=== PATIENT | female | born 1970 | race Caucasian/White ===

== ENCOUNTER → 2017-10-03 | Outpatient (CLI) | payer OTHER | END | disposition home or self-care (01) | LOC: RAD 11:51 | DX: M17.0 Bilateral primary osteoarthritis of knee (principal) | CPT/HCPCS: 73565 ==

== ENCOUNTER 2017-11-14 10:39 | Emergency (ER) | payer OTHER ==
[2017-11-14 12:00] LABS: ADD MAN DIFF? NO
[2017-11-14 12:10] LABS: BASO % 1 % (0-3); EOS # 0.1 x10^3/uL (0.0-0.7); EOS % 3 % (0-3); HEMOGLOBIN 13.7 g/dL (12.0-15.5); LYMPH # 1.5 x10^3/uL (1.0-4.8); LYMPH % 27 % (24-48); MEAN CORPUSCULAR HEMOGLOBIN 32 pg (25-35); MEAN CORPUSCULAR HGB CONC 34 g/dL (31-37); MEAN CORPUSCULAR VOLUME 93 fL (79-100); MONO # 0.6 x10^3/uL (0.0-1.1); MONO % 11 % (0-9); NEUT # 3.3 x10^3uL (1.8-7.7); NEUT % 59 % (31-73); PLATELET COUNT 300 x10^3/uL (140-400); RED BLOOD COUNT 4.31 x10^6/uL (3.50-5.40); RED CELL DISTRIBUTION WIDTH 13.1 % (11.5-14.5); WHITE BLOOD COUNT 5.7 x10^3/uL (4.0-11.0)
[2017-11-14] MEDS: IV NORMAL SALINE 1000ML BAG 1,000 ML IV (12:10)
[2017-11-14] MEDS: MORPHINE SULFATE 4 MG/ML DISP.SYRIN. IV (12:11)
[2017-11-14] MEDS: methylPREDNISolone SOD SUCC PF 125 MG/2 ML VIAL. IV (12:11)
[2017-11-14] MEDS: ACETAMINOPHEN 500 MG TABLET PO (12:11)
[2017-11-14] MEDS: LABETALOL 20 MG/4 ML DISP.SYRIN. IVP (12:12)
[2017-11-14 12:14] LABS: ANION GAP 9 (6-14); BLOOD UREA NITROGEN 7 mg/dL (7-20); BUN/CREATININE RATIO 9 (6-20); CARBON DIOXIDE 28 mmol/L (21-32); CHLORIDE 104 mmol/L (98-107); CREATININE 0.8 mg/dL (0.6-1.0); GFR 77.2; GLUCOSE 95 mg/dL (70-99); POTASSIUM 3.3 mmol/L (3.5-5.1); SODIUM 141 mmol/L (136-145)
[2017-11-14 12:19] LABS: ALBUMIN 3.6 g/dL (3.4-5.0); ALK PHOS 97 U/L (46-116); ALT (SGPT) 21 U/L (14-59); AST (SGOT) 20 U/L (15-37); TOTAL BILIRUBIN 0.4 mg/dL (0.2-1.0); TOTAL PROTEIN 7.3 g/dL (6.4-8.2)
== END 2017-11-14 14:15 | disposition home or self-care (01) ==
LOC: ER 10:39
DX: I13.0 Hypertensive heart and chronic kidney disease with heart failure and stage 1 through stage 4 chronic kidney disease, or unspecified chronic kidney disease (principal); N18.9 Chronic kidney disease, unspecified; I50.9 Heart failure, unspecified; R51 Headache; M32.9 Systemic lupus erythematosus, unspecified; Z90.49 Acquired absence of other specified parts of digestive tract; Z90.710 Acquired absence of both cervix and uterus; Z88.2 Allergy status to sulfonamides; Z88.1 Allergy status to other antibiotic agents
CPT/HCPCS: 36415; 80053; 85025; 96361; 96374; 96375; 99284-25; J2270; J2930; J3490; J7030

== ENCOUNTER → 2017-12-05 | Outpatient (CLI) | payer OTHER ==
[2017-12-05 12:32] LABS: HEMATOCRIT 41.5 % (36.0-47.0); HEMOGLOBIN 14.5 g/dL (12.0-15.5); MEAN CORPUSCULAR HEMOGLOBIN 33 pg (25-35); MEAN CORPUSCULAR HGB CONC 35 g/dL (31-37); MEAN CORPUSCULAR VOLUME 93 fL (79-100); PLATELET COUNT 357 x10^3/uL (140-400); RED BLOOD COUNT 4.45 x10^6/uL (3.50-5.40); WHITE BLOOD COUNT 6.5 x10^3/uL (4.0-11.0)
[2017-12-05 12:58] LABS: ALK PHOS 98 U/L (46-116); ALT (SGPT) 32 U/L (14-59); ANION GAP 11 (6-14); AST (SGOT) 21 U/L (15-37); BLOOD UREA NITROGEN 8 mg/dL (7-20); BUN/CREATININE RATIO 8 (6-20); CALCIUM 9.2 mg/dL (8.5-10.1); CARBON DIOXIDE 26 mmol/L (21-32); CHLORIDE 102 mmol/L (98-107); CHOLESTEROL 261 mg/dL (0-200); GFR 59.4; GLUCOSE 105 mg/dL (70-99); HDLC 60 mg/dL (40-60); LDLC 174 mg/dL (0-100); NON-HDL CHOLESTEROL 201 mg/dL (0-129); POTASSIUM 3.4 mmol/L (3.5-5.1); SODIUM 139 mmol/L (136-145); TOTAL BILIRUBIN 0.7 mg/dL (0.2-1.0); TOTAL PROTEIN 7.9 g/dL (6.4-8.2); TRIGLYCERIDES 137 mg/dL (0-150); VLDLC 27 mg/dL (0-40)
[2017-12-05 13:03] LABS: CHOLESTEROL/HDL RATIO 4.4
== END | disposition home or self-care (01) ==
LOC: LAB 12:13
DX: Z13.220 Encounter for screening for lipoid disorders (principal); I16.9 Hypertensive crisis, unspecified
CPT/HCPCS: 36415; 80053; 80061; 85027

== ENCOUNTER → 2017-12-05 | Outpatient (CLI) | payer OTHER ==
[2017-12-05 12:56] LABS: CALCIUM 9.6 mg/dL (8.5-10.1)
[2017-12-05 12:56] LABS: GFR 59.4
[2017-12-05 13:36] LABS: SEDIMENTATION RATE 15 (0-25)
[2017-12-05 19:14] LABS: C3 COMPLEMENT 150 mg/dL (82-167)
[2017-12-05 19:14] LABS: C4 COMPLEMENT 25 mg/dL (14-44)
[2017-12-06 21:11] LABS: CYCLIC CITRULLIN PEP AB 9 units (0-19)
[2017-12-07 09:24] LABS: ANTI-DS DNA 3 IU/mL (0-9); RNP ANTIBODY 1.3 AI (0.0-0.9); SMITH AB <0.2 AI (0.0-0.9); SSA ANTIBODY <0.2 AI (0.0-0.9); SSB ANTIBODY <0.2 AI (0.0-0.9)
== END | disposition home or self-care (01) ==
LOC: LAB 12:06
DX: M32.9 Systemic lupus erythematosus, unspecified (principal); E55.9 Vitamin D deficiency, unspecified
CPT/HCPCS: 36415; 82306; 82310; 82565; 85651; 86140; 86160; 86200; 86235; 87801

== ENCOUNTER → 2017-12-06 | Outpatient (CLI) | payer OTHER | END | disposition home or self-care (01) | LOC: KCIC DEXA 09:43 | DX: Z51.81 Encounter for therapeutic drug level monitoring (principal); Z79.52 Long term (current) use of systemic steroids | CPT/HCPCS: 77080 ==

== ENCOUNTER → 2017-12-12 | Outpatient (CLI) | payer OTHER | END | disposition home or self-care (01) | LOC: US 15:56 | DX: M79.89 Other specified soft tissue disorders (principal) | CPT/HCPCS: 93971 ==

== ENCOUNTER → 2017-12-13 | Outpatient (CLI) | payer OTHER | END | disposition home or self-care (01) | LOC: RAD 14:12 | DX: M43.16 Spondylolisthesis, lumbar region (principal); M12.88 Other specific arthropathies, not elsewhere classified, other specified site | CPT/HCPCS: 72100 ==

== ENCOUNTER → 2017-12-28 | Outpatient (CLI) | payer OTHER | END | disposition home or self-care (01) | LOC: KCIC MRI 08:26 | DX: M51.26 Other intervertebral disc displacement, lumbar region (principal); M48.061 Spinal stenosis, lumbar region without neurogenic claudication; M12.88 Other specific arthropathies, not elsewhere classified, other specified site; I13.0 Hypertensive heart and chronic kidney disease with heart failure and stage 1 through stage 4 chronic kidney disease, or unspecified chronic kidney disease; I50.9 Heart failure, unspecified; N18.9 Chronic kidney disease, unspecified | CPT/HCPCS: 72148 ==

== ENCOUNTER 2018-01-12 18:25 | Emergency (ER) | payer OTHER ==
[2018-01-12] MEDS: LIDOCAINE 1% PF 2 ML VIAL. INJ (19:25)
== END 2018-01-12 19:53 | disposition home or self-care (01) ==
LOC: ER 18:25
DX: H65.92 Unspecified nonsuppurative otitis media, left ear (principal); I11.0 Hypertensive heart disease with heart failure; I50.9 Heart failure, unspecified; Z88.2 Allergy status to sulfonamides; Z88.8 Allergy status to other drugs, medicaments and biological substances
CPT/HCPCS: 96372; 99283-25

== ENCOUNTER 2018-01-18 20:18 | Emergency (ER) | payer OTHER ==
[2018-01-18] MEDS: HYDROcodone/APAP 5/325MG 1 TAB TABLET PO (21:04)
[2018-01-18] MEDS: LIDOCAINE 1% PF 2 ML VIAL. INJ (21:16)
== END 2018-01-18 21:16 | disposition home or self-care (01) ==
LOC: ER 20:18
DX: H66.92 Otitis media, unspecified, left ear (principal); F41.9 Anxiety disorder, unspecified; M19.90 Unspecified osteoarthritis, unspecified site; I11.0 Hypertensive heart disease with heart failure; I50.9 Heart failure, unspecified; F32.9 Major depressive disorder, single episode, unspecified; Z88.2 Allergy status to sulfonamides; Z88.1 Allergy status to other antibiotic agents
CPT/HCPCS: 96372; 99283

== ENCOUNTER → 2018-10-09 | Outpatient (CLI) | payer OTHER ==
[2018-06-15 09:02] VITALS: BP 128/90
[~2018-10-09] MED LIST: ACET325T9 PO; AZAT50TA20 PO; CEFP200T PO; CYCL10TA2 PO; DICL75TA PO; GABA300C18 PO; HYDR-2678 PO; HYDR-3164 PO; HYDR200T71 PO; LISI10TA2 PO; MAGN400T3 PO; METO50TA6 PO; METO5TAB4 PO; NAPH1POW2 PO; NAPR-514 PO; NIFE60TA PO; POTA20TA82 PO; TRAM50TA PO
[2018-10-09 11:50] LABS: BASO # 0.1 x10^3/uL (0.0-0.2); BASO % 1 % (0-3); EOS # 0.2 x10^3/uL (0.0-0.7); EOS % 3 % (0-3); HEMATOCRIT 40.4 % (36.0-47.0); HEMOGLOBIN 13.6 g/dL (12.0-15.5); LYMPH # 2.2 x10^3/uL (1.0-4.8); LYMPH % 34 % (24-48); MEAN CORPUSCULAR HEMOGLOBIN 31 pg (25-35); MEAN CORPUSCULAR HGB CONC 34 g/dL (31-37); MEAN CORPUSCULAR VOLUME 92 fL (79-100); MONO # 0.5 x10^3/uL (0.0-1.1); MONO % 7 % (0-9); NEUT # 3.5 x10^3uL (1.8-7.7); NEUT % 55 % (31-73); PLATELET COUNT 346 x10^3/uL (140-400); RED CELL DISTRIBUTION WIDTH 13.6 % (11.5-14.5); WHITE BLOOD COUNT 6.4 x10^3/uL (4.0-11.0)
[2018-10-09 12:15] LABS: ALBUMIN/GLOBULIN RATIO 1.1 (1.0-1.7); C-REACTIVE PROTEIN 0.9 mg/L (0-3.3); CALCIUM 8.9 mg/dL (8.5-10.1); CREATININE 0.9 mg/dL (0.6-1.0); GFR 67.1; POTASSIUM 3.8 mmol/L (3.5-5.1); TOTAL BILIRUBIN 0.4 mg/dL (0.2-1.0); TOTAL PROTEIN 7.8 g/dL (6.4-8.2)
[2018-10-10 10:23] LABS: C3 COMPLEMENT 145 mg/dL (82-167); C4 COMPLEMENT 20 mg/dL (14-44)
== END | disposition home or self-care (01) ==
LOC: LAB 11:26
PROVIDERS: ATTEND Internal Medicine Rheumatology
DX: M25.50 Pain in unspecified joint (principal)
CPT/HCPCS: 36415; 80053; 85025; 85651; 86140; 86160; 87801

== ENCOUNTER → 2019-02-28 | Outpatient (CLI) | payer OTHER ==
[2018-06-15 09:02] VITALS: BP 128/90
--- NOTE | 2019-02-28 16:18 | KCIC ---
CHEST PA LATERAL History: Cough and bronchitis Comparison: 06/14/2018 CTA of the chest, 06/13/2018 portable chest x-ray exam. Findings: The cardiomediastinal silhouette is normal. Pulmonary vasculature is normal. The lungs are clear. No pleural effusion or pneumothorax is seen. There is no acute bone abnormality. Right upper quadrant surgical clips are present. IMPRESSION: No acute cardiopulmonary process. Electronically signed by: Isaac France MD (02/28/2019 4:15 PM) [facility]
== END | disposition home or self-care (01) ==
LOC: KCIC 15:52
PROVIDERS: ATTEND Internal Medicine
DX: J40 Bronchitis, not specified as acute or chronic (principal); R05 Cough; R07.9 Chest pain, unspecified
CPT/HCPCS: 71046

== ENCOUNTER 2019-05-09 07:06 | Observation (INO) | payer OTHER ==
--- NOTE | 2019-05-08 15:15 | HP ---
ADMIT DATE: CHIEF COMPLAINT AND HISTORY OF PRESENT ILLNESS: This patient is a 48-year-old white female who is a 2, para 2 and has had both vaginal deliveries, which is normal and she has had a hysterectomy in the year 2009 for mainly vaginal bleeding and at the present time, she is complaining of bulge in the vaginal area for a year, which has gotten worse and she is a patient of Dr. Oswald and was referred because of a bulge in the vaginal area. She is not diabetic. She does have high blood pressure and she is on medication for the blood pressure problem. PAST MEDICAL HISTORY: Reveals that she has had a hysterectomy, adenoidectomy, also a kidney stone removed. ALLERGIES: She is allergic to SULFA. PERSONAL HISTORY: No smoking. Not alcoholic. REVIEW OF SYSTEMS: Essentially negative. PHYSICAL EXAMINATION: VITAL SIGNS: Stable. She is slightly obese. HEAD, EYES, NOSE, THROAT: Within normal limits. LUNGS: Clear. HEART: Sounds regular sinus rhythm. ABDOMEN: Soft. PELVIC: Shows external genitalia being normal and she does have a cystocele and rectocele. On bimanual exam, no adnexal masses are palpable. No vaginal bleeding noted at the time of the examination. A Pap smear done in the office has remained normal. EXTREMITIES: No edema of feet. IMPRESSION: Cystocele and rectocele. PLAN: Cystocele and rectocele repair, which is the anterior and posterior colpoperineorrhaphy. This has been explained to the patient. Also, the complications of surgery like hemorrhage, risk of infection, injury to the bladder and bowel has been explained to her. The patient is willing for the operation at the present time. ABIMAEL ALLAN MD DR: FERN/rosales JOB#: [id number] / [id number]
[2019-05-09] VITALS (10 sets, daily range): BP systolic 100–120; BP diastolic 62–88
[~2019-05-09] VITALS: Ht 157.5 cm; Wt 98.4 kg
[~2019-05-09 07:06] MED LIST changes: +IV RINGERS,LACTATED 1000ML 1,000 ML IV SCH; -MAGN400T3 PO; +MAGN400T5 PO; +ONDANSETRON PF 4 MG/2 ML VIAL. IV PRN; +fentaNYL PF VIAL 100 MCG/2 ML VIAL IV PRN
[2019-05-09] MEDS ORDERED: BUPIVACAINE-EPI 0.25%-1:200000 MPF 30 ML VIAL. INJ ONE (08:00)
[2019-05-09] MEDS ORDERED: fentaNYL PF VIAL 100 MCG/2 ML VIAL ONE ×2 (08:00→10:17)
[2019-05-09] MEDS ORDERED: ONDANSETRON PF 4 MG/2 ML VIAL. ONE (08:00)
[2019-05-09] MEDS ORDERED: DEXAMETHASONE SOD PHOS 4 MG/ML VIAL ONE (08:00)
[2019-05-09] MEDS ORDERED: PROPOFOL 20 ML IV ONE (08:00)
[2019-05-09] MEDS ORDERED: LIDOCAINE 2% PF 5 ML VIAL. ONE (08:00)
[2019-05-09] MEDS ORDERED: MIDAZOLAM HCL/PF 2 MG/2 ML VIAL. ONE (08:01)
[2019-05-09 09:01] LABS: BASO # 0.1 x10^3/uL (0.0-0.2); BASO % 1 % (0-3); EOS # 0.2 x10^3/uL (0.0-0.7); EOS % 4 % (0-3); HEMATOCRIT 39.5 % (36.0-47.0); HEMOGLOBIN 13.4 g/dL (12.0-15.5); LYMPH # 1.5 x10^3/uL (1.0-4.8); LYMPH % 25 % (24-48); MEAN CORPUSCULAR HEMOGLOBIN 31 pg (25-35); MEAN CORPUSCULAR HGB CONC 34 g/dL (31-37); MEAN CORPUSCULAR VOLUME 91 fL (79-100); MONO # 0.4 x10^3/uL (0.0-1.1); MONO % 7 % (0-9); NEUT # 3.9 x10^3/uL (1.8-7.7); NEUT % 64 % (31-73); PLATELET COUNT 343 x10^3/uL (140-400); RED BLOOD COUNT 4.33 x10^6/uL (3.50-5.40); RED CELL DISTRIBUTION WIDTH 13.6 % (11.5-14.5); WHITE BLOOD COUNT 6.1 x10^3/uL (4.0-11.0)
[2019-05-09 09:11] LABS: PROTHROMBIN TIME PATIENT 13.9 SEC (11.7-14.0)
[2019-05-09] MEDS ORDERED: KETOROLAC 30 MG/ML VIAL. ONE (09:28)
[2019-05-09] MEDS ORDERED: SEVOFLURANE 61 TO 120 MINUTES. IH ONE (09:29)
--- NOTE | 2019-05-09 10:09 | PDOC ---
GENERAL General: 48 yrs old lady has Cystocoel and Rectocoel Scheduled for Anterior and Posterior Colpo perineorrhaphy. VITAL SIGNS Vital Signs/I&O: Vital Signs Date Time Temp Pulse Resp B/P (MAP) Pulse Ox O2 Delivery O2 Flow Rate FiO2 05/09/19 07:47 97.5 61 16 137/91 97 Room Air 97.5 ALLERGIES Allergies: Allergies Coded Allergies Type Severity Reaction Last Updated Verified Sulfa (Sulfonamide Antibiotics) Allergy Intermediate 06/13/18 Yes sulfamethoxazole Allergy Intermediate 06/13/18 Yes trimethoprim Allergy Intermediate 06/13/18 Yes MEDS Medications: Current Medications Medications (Trade) Dose Ordered Sig/Belkis Route PRN Reason Start Time Stop Time Status Last Admin Dose Admin Ringer's Solution 1,000 ml @ 30 mls/hr Q24H IV 05/09/19 07:00 05/09/19 18:59 05/09/19 07:57 Cefazolin Sodium/ Dextrose 50 ml @ 100 mls/hr 1X PREOP PRN IV PRIOR TO PROCEDURE 05/10/19 06:00 05/10/19 18:00 05/09/19 09:01 LAB Lab: Laboratory Tests Test 05/09/19 07:50 White Blood Count 6.1 x10^3/uL (4.0-11.0) Red Blood Count 4.33 x10^6/uL (3.50-5.40) Hemoglobin 13.4 g/dL (12.0-15.5) Hematocrit 39.5 % (36.0-47.0) Mean Corpuscular Volume 91 fL (79-100) Mean Corpuscular Hemoglobin 31 pg (25-35) Mean Corpuscular Hemoglobin Concent 34 g/dL (31-37) Red Cell Distribution Width 13.6 % (11.5-14.5) Platelet Count 343 x10^3/uL (140-400) Neutrophils (%) (Auto) 64 % (31-73) Lymphocytes (%) (Auto) 25 % (24-48) Monocytes (%) (Auto) 7 % (0-9) Eosinophils (%) (Auto) 4 % (0-3) H Basophils (%) (Auto) 1 % (0-3) Neutrophils # (Auto) 3.9 x10^3/uL (1.8-7.7) Lymphocytes # (Auto) 1.5 x10^3/uL (1.0-4.8) Monocytes # (Auto) 0.4 x10^3/uL (0.0-1.1) Eosinophils # (Auto) 0.2 x10^3/uL (0.0-0.7) Basophils # (Auto) 0.1 x10^3/uL (0.0-0.2) Prothrombin Time 13.9 SEC (11.7-14.0) Prothrombin Time INR 1.1 (0.8-1.1) Activated Partial Thromboplast Time 29 SEC (24-38) Laboratory Tests 05/09/19 07:50 ASSESSMENT & PLAN A&P Under GA Anterior and Posterior Colpoperineorhaphy done. EBL 20cc. ABIMAEL ALLAN MD May 09, 2019 10:09
[2019-05-09] MEDS: fentaNYL PF VIAL 100 MCG/2 ML VIAL IV PRN ×2 (10:19→10:28)
[2019-05-09] MEDS ORDERED: MORPHINE SULFATE 2 MG/ML VIAL. ONE (10:21)
[2019-05-09] MEDS: MORPHINE SULFATE 2 MG/ML VIAL. IV PRN ×2 (10:23→10:33)
[2019-05-09] MEDS ORDERED: PROCHLORPERAZINE 10 MG/2 ML VIAL. ONE (10:27)
[2019-05-09] MEDS: PROCHLORPERAZINE 10 MG/2 ML VIAL. IV PRN ×2 (10:30→12:20)
[2019-05-09] MEDS ORDERED: traMADol 50 MG TABLET PO ONE (10:30)
--- NOTE | 2019-05-09 10:33 | OP ---
DATE OF SURGERY: 05/09/2019 PREOPERATIVE DIAGNOSES: Cystocele and rectocele. POSTOPERATIVE DIAGNOSES: Cystocele and rectocele. OPERATION PERFORMED: Anterior and posterior colpoperineorrhaphy. OPERATIVE PROCEDURE: The patient was taken to the operating room under general anesthesia. She was placed in the dorsal lithotomy position. Perineum was prepped and draped in the usual manner. Weighted speculum inserted in the posterior vaginal wall and Gooden catheter introduced into bladder for continuous bladder drainage and midline vertical incision was made on the anterior vaginal wall over the area of the cystocele and the vesicovaginal fascia was dissected, and obliteration of the cystocele was done using Goldie stitches using 2-0 chromic catgut sutures and excessive vaginal mucous membrane on either side was excised and was brought together in midline, sutured together using continuous 0 chromic catgut sutures without any problem. Then, the posterior perineorrhaphy was proceeded by making an incision at the mucocutaneous junction on the posterior vaginal wall and also a midline vertical incision was made on the posterior vaginal wall. Thus, the rectovaginal fascia was dissected, obliteration of the rectocele was done and a pursestring suture using 0 chromic catgut sutures were used to obliterate the rectocele and the excessive vaginal mucous membrane on either side was excised and subjected for pathological examination. The cut edges of vaginal mucous membrane was brought together at midline and sutured together using continuous 0 chromic catgut sutures and the levator ani muscles were brought together midline using [id number] 0 chromic catgut sutures. After this, 2-0 chromic catgut sutures were used to close the posterior vaginal wall without any problem and the vagina was packed with iodoform gauze and the patient was sent to the recovery room in good condition. No complications encountered at time of the procedure. Estimated blood loss about 20 mL. Postoperative condition is stable. ABIMAEL ALLAN MD DR: FERN/rosales JOB#: [id number] / [id number]
[2019-05-09] MEDS ORDERED: HYDROmorphone 2 MG/ML VIAL ONE (10:53)
[2019-05-09] MEDS: HYDROmorphone 2 MG/ML VIAL IV PRN ×4 (11:00→12:25)
[2019-05-09] MEDS ORDERED: IV DEXTROSE 5%-LACT RINGERS 1,000 ML IV SCH (11:45)
--- NOTE | 2019-05-09 13:15 | NUR ---
Pt arrived to bed 333. Pt walked to bed with stand by assistance. Pt has zavala catheter in place with clear, yellow urine. Pt has complaint of pain 3/10 in abdomen. pt has small amount of bloody vaginal discharge with vaginal packing intact. Pt given water at this time. Call light within reach. Will continue to monitor.
[2019-05-09] MEDS: oxyCODONE/APAP 5/325 1 TAB TABLET PO PRN ×3 (15:28→23:52)
[2019-05-10] MEDS: MORPHINE SULFATE 2 MG/ML VIAL. IV PRN ×2 (01:19→05:52)
[2019-05-10 01:25] VITALS: BP 116/66
[2019-05-10] MEDS: oxyCODONE/APAP 5/325 1 TAB TABLET PO PRN ×2 (05:46→10:33)
[2019-05-10 06:00] VITALS: BP 125/81
[2019-05-10] MEDS ORDERED: ceFAZolin 2GM PREMIX 2 GM/50 ML BAG IV ONE (08:00)
--- NOTE | 2019-05-10 08:26 | PDOC ---
GENERAL General: Vital signs stable Vaginal packing removed. VITAL SIGNS Vital Signs/I&O: Vital Signs Date Time Temp Pulse Resp B/P (MAP) Pulse Ox O2 Delivery O2 Flow Rate FiO2 05/10/19 06:00 98.0 71 20 125/81 (96) 95 Room Air 98.0 05/09/19 13:30 2.0 I & O 05/09/19 05/09/19 05/10/19 15:00 23:00 07:00 Intake Total 900 ml 580 ml Output Total 220 ml 650 ml Balance 680 ml -70 ml ALLERGIES Allergies: Allergies Coded Allergies Type Severity Reaction Last Updated Verified Sulfa (Sulfonamide Antibiotics) Allergy Intermediate 05/09/19 Yes sulfamethoxazole Allergy Intermediate 05/09/19 Yes trimethoprim Allergy Intermediate 05/09/19 Yes MEDS Medications: Current Medications Medications (Trade) Dose Ordered Sig/Belkis Route PRN Reason Start Time Stop Time Status Last Admin Dose Admin Cefazolin Sodium/ Dextrose 50 ml @ 100 mls/hr 1X PREOP PRN IV PRIOR TO PROCEDURE 05/10/19 06:00 05/10/19 01:41 DC 05/09/19 09:01 Dextrose/Lactated Ringer's 1,000 ml @ 125 mls/hr Q8H IV 05/09/19 11:45 05/10/19 01:41 DC 05/09/19 13:55 Morphine Sulfate (Morphine Sulfate) 2 mg PRN Q2HR PRN IV PAIN 05/09/19 12:15 05/10/19 05:52 Oxycodone/ Acetaminophen (Percocet 5/325) 1 tab PRN Q4HRS PRN PO PAIN 05/09/19 12:15 05/10/19 05:46 ASSESSMENT & PLAN A&P Patient doing well. She can go home today. Will see her in office in 2 weeks. ABIMAEL ALLAN MD May 10, 2019 08:26
--- NOTE | 2019-05-11 00:06 | PATHOLOGY ---
[facility] Accession Number: [id number] . 01 Material submitted: . vagina - ANTERIOR AND POSTERIOR VAGINAL WALL. Modifiers: anterior, posterior, wall . 01 Clinical history: . Cystocele, rectocele . 02 Diagnosis: "Anterior and posterior vaginal wall", excision: - Benign squamous mucosa and submucosa with mild chronic inflammation. (CLW/db; 05/10/2019) LBQ 05/10/2019 1226 Local . 02 Electronically signed: . Crystal Bautista MD, Pathologist NPI- [id number] . 01 Gross description: . The specimen is received in formalin, labeled "Jennifer Albert, anterior and posterior vaginal wall". Received are multiple segments of pink-barton, wrinkled vaginal mucosa measuring 4.8 x 3.2 x 0.7 cm in aggregate dimensions. The specimen is submitted representatively in cassette A1. (CAA; 05/09/2019) QA/[facility] 05/09/2019 1615 Local . 02 Pathologist provided ICD-10: N76.1 . 02 CPT . 660433 Specimen Comment: A courtesy copy of this report has been sent to [phone] Specimen Comment: [id number], Specimen Comment: Report sent to ,DR SANTILLAN / DR PAUL Performed at: 01 [facility] [address], [place] [id number] MD Christian Camacho MD Phone: [phone] Performed at: 02 [facility] [address], [place] [id number] MD Doug Joyce MD Phone: [phone]
== END 2019-05-10 11:45 | disposition home or self-care (01) ==
LOC: SURG 07:06 → 3 NORTH 12:01
PROVIDERS: ADMIT Obstetrics & Gynecology; ATTEND Obstetrics & Gynecology
DX: N81.10 Cystocele, unspecified (principal); N81.6 Rectocele; Z87.442 Personal history of urinary calculi; Z90.710 Acquired absence of both cervix and uterus; Z90.89 Acquired absence of other organs
CPT/HCPCS: 36415; 57260; 85025; 85610; 85730; 86850; 86870; 86900; 86901; 86902; 88305; 96365; 96375; 96376; A7015; G0378; G0379; J0696; J0780; J1100; J1170; J1885; J2001; J2250; J2270; J2405; J2704; J3010

== ENCOUNTER → 2019-06-04 | Outpatient (CLI) | payer OTHER ==
[2019-05-10 06:00] VITALS: BP 125/81
[~2019-06-04] MED LIST changes: -IV RINGERS,LACTATED 1000ML 1,000 ML IV SCH; -ONDANSETRON PF 4 MG/2 ML VIAL. IV PRN; +POTA20TA4 PO; -POTA20TA82 PO; -fentaNYL PF VIAL 100 MCG/2 ML VIAL IV PRN
--- NOTE | 2019-06-04 16:31 | KCIC ---
EXAM: Left foot, 2 views. HISTORY: Pain. COMPARISON: None. FINDINGS: 2 views left foot are obtained. There is no fracture, dislocation or subluxation. IMPRESSION: No acute osseous finding. Electronically signed by: Gerri Rose MD (06/04/2019 4:28 PM) [place] [id number]
== END | disposition home or self-care (01) ==
LOC: KCIC 12:59
PROVIDERS: ATTEND Internal Medicine
DX: M79.672 Pain in left foot (principal)
CPT/HCPCS: 73620

== ENCOUNTER → 2019-12-07 | Outpatient (CLI) | payer OTHER | LOC: LAB 09:17 | PROVIDERS: ATTEND Internal Medicine Rheumatology | DX: M32.9 Systemic lupus erythematosus, unspecified (principal) | CPT/HCPCS: 36415; 86140; 86255 ==

== ENCOUNTER → 2019-12-07 | Outpatient (CLI) | payer OTHER ==
[2019-12-07 10:00] LABS: BASO % 1 % (0-3); EOS # 0.2 x10^3/uL (0.0-0.7); EOS % 3 % (0-3); HEMATOCRIT 38.9 % (36.0-47.0); HEMOGLOBIN 13.1 g/dL (12.0-15.5); LYMPH # 1.8 x10^3/uL (1.0-4.8); LYMPH % 29 % (24-48); MEAN CORPUSCULAR HEMOGLOBIN 30 pg (25-35); MEAN CORPUSCULAR HGB CONC 34 g/dL (31-37); MEAN CORPUSCULAR VOLUME 90 fL (79-100); MONO # 0.4 x10^3/uL (0.0-1.1); MONO % 7 % (0-9); NEUT # 3.8 x10^3/uL (1.8-7.7); NEUT % 61 % (31-73); PLATELET COUNT 352 x10^3/uL (140-400); RED BLOOD COUNT 4.31 x10^6/uL (3.50-5.40); RED CELL DISTRIBUTION WIDTH 13.5 % (11.5-14.5); WHITE BLOOD COUNT 6.2 x10^3/uL (4.0-11.0)
[2019-12-07 10:07] LABS: ALBUMIN 3.8 g/dL (3.4-5.0); CALCIUM 8.4 mg/dL (8.5-10.1); CREATININE 0.9 mg/dL (0.6-1.0); GFR 66.5; POTASSIUM 3.6 mmol/L (3.5-5.1); TOTAL BILIRUBIN 0.4 mg/dL (0.2-1.0); TOTAL PROTEIN 7.8 g/dL (6.4-8.2)
[2019-12-07 10:08] LABS: BILIRUBIN,URINE NEGATIVE (NEG); CLARITY,URINE CLEAR; COLOR,URINE YELLOW; NITRITE,URINE NEGATIVE (NEG); PH,URINE 6.5 (<5.0-8.0); PROTEIN,URINE NEGATIVE (NEG-TRACE)
[2019-12-07 10:24] LABS: SQUAMOUS EPITHELIAL CELL,UR MOD /LPF
[2019-12-07 10:25] LABS: BACTERIA,URINE FEW /HPF (0-FEW); RBC,URINE 0 /HPF (0-2)
[2019-12-08 03:08] LABS: HEMOGLOBIN A1C 5.6 % (4.8-5.6)
== END ==
LOC: LAB 09:11
PROVIDERS: ATTEND Internal Medicine
DX: I10 Essential (primary) hypertension (principal); M32.9 Systemic lupus erythematosus, unspecified
CPT/HCPCS: 36415; 80053; 80061; 81001; 83036; 84443; 85025; 87086

== ENCOUNTER → 2020-01-14 | Outpatient (CLI) | payer OTHER | END | disposition home or self-care (01) | LOC: LAB 10:10 | PROVIDERS: ATTEND Internal Medicine Pulmonary Disease | DX: Z20.828 Contact with and (suspected) exposure to other viral communicable diseases (principal); J02.9 Acute pharyngitis, unspecified; R50.9 Fever, unspecified | CPT/HCPCS: U0003-CS ==

== ENCOUNTER → 2020-05-10 | Outpatient (CLI) | payer OTHER | LOC: LAB 11:42 | PROVIDERS: ATTEND Internal Medicine Pulmonary Disease | DX: U07.1 COVID-19 (principal) | CPT/HCPCS: U0003 ==

== ENCOUNTER → 2020-05-12 | Outpatient (CLI) | payer OTHER ==
--- NOTE | 2020-05-12 16:19 | RAD ---
CHEST PA LATERAL History: Reason: PNEUMONIA COVID+ / Spl. Instructions: / History: Comparison: February 28, 2019 Findings: No consolidation or pleural effusion. Normal heart size. No pneumothorax. Impression: 1. No acute cardiopulmonary process. Electronically signed by: Jozef Simmons DO (05/12/2020 4:16 PM) [id number]
== END ==
LOC: RAD 12:14
PROVIDERS: ATTEND Internal Medicine
DX: U07.1 COVID-19 (principal); J18.9 Pneumonia, unspecified organism
CPT/HCPCS: 71046

== ENCOUNTER → 2021-01-06 | Outpatient (CLI) | payer OTHER ==
[~2021-01-06] MED LIST changes: +ASPI325T11 PO; +ATOR10TA60 PO; +CYCL10TA19 PO; -CYCL10TA2 PO; +FLUO20CA22 PO; +LISI10TA16 PO; -LISI10TA2 PO; +LOSA-73 PO; +MAGN400T48 PO; -MAGN400T5 PO; +METO-239 PO; +OXYC1TAB19 PO; +SENN-209 PO; +VITA25006 PO
--- NOTE | 2021-01-06 11:32 | KCIC ---
XR KNEE 1-2 VIEWS History: OA bilateral knees, chronic pain, working for years on feet. Comparison: 08/28/2020 Technique: AP and lateral views of the bilateral knees Findings: Osseous mineralization is normal. No fracture or dislocaton. Severe right knee osteoarthritis with co mplete loss of the lateral tibiofemoral compartment and large marginal osteophytes. Moderate to sever e left knee osteoarthritis with moderate tricompartmental joint space loss and large marginal osteoph ytes. No significant effusion. No focal soft tissue swelling. Impression: 1. Advanced bilateral knee osteoarthritis. Electronically signed by: Pawan Laura MD (01/06/2021 11:30 AM) [id number]
--- NOTE | 2021-01-06 11:35 | KCIC ---
XR LUMBAR SPINE 2-3V History: CHRONIC LBP, YEARS OF WORKING ON FEET Comparison: 12/13/2017 Technique: 3 views of the lumbar spine. Findings: There are 5 non-rib bearing lumbar vertebral segments. There is no evidence of fracture. Grade 1 anterolisthesis of L4 on L5, progressive from comparison. No destructive osseous lesions are seen. Hypertrophic degenerative changes of the lower lumbar facet joints. Moderate disc space narrowing L4-L5. Mild disc space narrowing L3-L4 and L5-S1. The Mild degenerative changes of the sacroiliac joints. Surgical clips in the right upper quadrant of the abdomen. IMPRESSION: 1. Lower lumbar spondylosis with progressive grade 1 anterolisthesis of L4 on L5 with associated dis c and facet disease. Electronically signed by: Pawan Laura MD (01/06/2021 11:33 AM) [id number]
--- NOTE | 2021-01-06 13:46 | KCIC ---
Bilateral digital screening mammograms: Reason for examination: Routine baseline screening. Interpretation was made with the benefit of CAD. The skin and nipples show no abnormalities. No abnormal axillary lymph nodes are seen. The breast par enchyma shows scattered fibroglandular density. (Breast density: Category B.) There is some asymmetri c parenchyma in the upper outer quadrant of the right breast at the 10:00 C position. This can be fur ther evaluated with ultrasound for underlying nodule. There are small circumscribed nodules consisten t with intramammary lymph nodes bilaterally. There are no other dominant masses, suspicious calcifica tions or architectural distortions. Impression: Nodular asymmetry in the 10:00 C position of the right breast. Recommend further evaluation with ultr asound. BI-RADS Category 0: Incomplete. Needs additional imaging evaluation. "Our facility is accredited by the [employer] Mammography Program." This patient's information has been entered into a reminder system for the patient to be notified wit h the results of her examination and a target date for the next mammogram. Electronically signed by: Desi Franco MD (01/06/2021 1:43 PM) [email or web address]
== END ==
LOC: KCIC 08:58
PROVIDERS: ATTEND Internal Medicine
DX: Z12.31 Encounter for screening mammogram for malignant neoplasm of breast (principal); M17.0 Bilateral primary osteoarthritis of knee; M25.762 Osteophyte, left knee; M25.761 Osteophyte, right knee; M47.816 Spondylosis without myelopathy or radiculopathy, lumbar region; M48.07 Spinal stenosis, lumbosacral region; M46.1 Sacroiliitis, not elsewhere classified; M43.16 Spondylolisthesis, lumbar region
CPT/HCPCS: 72100; 77067; 73560-50

== ENCOUNTER → 2021-01-20 | Outpatient (CLI) | payer OTHER ==
[~2021-01-20] MED LIST changes: -ASPI325T11 PO; -ATOR10TA60 PO; -CYCL10TA19 PO; +CYCL10TA2 PO; -FLUO20CA22 PO; -LOSA-73 PO; -MAGN400T48 PO; +MAGN400T5 PO; -METO-239 PO; -OXYC1TAB19 PO; -SENN-209 PO; -VITA25006 PO
--- NOTE | 2021-01-20 11:23 | KCIC ---
Targeted/Limited right breast ultrasound INDICATION: Baseline mammogram showed focal asymmetry in the 10:00 position of the right breast at po sterior depth. COMPARISON: 01/06/2021 mammogram. The area of concern on mammogram, 10:00 region of the right breast, and right axilla were imaged. There is a simple 8 mm cyst at 10:00, 7 cm from the nipple. There is focally dense fibroglandular tis gisele in the 10:00 position, 12 cm from the nipple, that correlates with the asymmetry seen on mammogra m. This does not appear masslike. No suspicious breast mass is seen. No abnormal right axillary lymph nodes are identified. IMPRESSION: There is focally dense fibroglandular tissue in the 10:00 position of the right breast, 1 2 cm from the nipple, which correlates with focal asymmetry seen on mammogram. No suspicious breast m ass is seen. ASSESSMENT: BI-RADS 2. Benign findings. Recommendations: Routine screening mammogram. Results are given to the patient at the time of the exam. Patient information will be entered into [facility] mammography reminder system with target recall date for next mammogram. She will receive reminder l raúl. Electronically signed by: Arabella Drew MD (01/20/2021 11:21 AM) [email or web address]
== END ==
LOC: KCIC US 10:50
PROVIDERS: ATTEND Internal Medicine
DX: R92.2 Inconclusive mammogram (principal)
CPT/HCPCS: 76641

== ENCOUNTER → 2021-02-18 | Outpatient (CLI) | payer OTHER ==
[2021-02-18 12:32] LABS: BASO # 0.1 x10^3/uL (0.0-0.2); BASO % 1 % (0-3); EOS # 0.1 x10^3/uL (0.0-0.7); EOS % 2 % (0-3); HEMATOCRIT 38.8 % (36.0-47.0); HEMOGLOBIN 13.4 g/dL (12.0-15.5); LYMPH # 1.8 x10^3/uL (1.0-4.8); LYMPH % 32 % (24-48); MEAN CORPUSCULAR HEMOGLOBIN 31 pg (25-35); MEAN CORPUSCULAR HGB CONC 35 g/dL (31-37); MEAN CORPUSCULAR VOLUME 91 fL (79-100); MONO # 0.4 x10^3/uL (0.0-1.1); MONO % 8 % (0-9); NEUT # 3.2 x10^3/uL (1.8-7.7); NEUT % 58 % (31-73); PLATELET COUNT 385 x10^3/uL (140-400); RED BLOOD COUNT 4.25 x10^6/uL (3.50-5.40); RED CELL DISTRIBUTION WIDTH 14.2 % (11.5-14.5); WHITE BLOOD COUNT 5.6 x10^3/uL (4.0-11.0)
[2021-02-18 12:36] LABS: BILIRUBIN,URINE SMALL (NEG); CLARITY,URINE CLOUDY; COLOR,URINE YELLOW; NITRITE,URINE NEGATIVE (NEG); PROTEIN,URINE NEGATIVE (NEG-TRACE)
[2021-02-18 12:47] LABS: BACTERIA,URINE FEW /HPF (0-FEW); WBC,URINE OCC /HPF (0-4)
[2021-02-18 12:59] LABS: ALBUMIN 3.4 g/dL (3.4-5.0); ALBUMIN/GLOBULIN RATIO 0.9 (1.0-1.7); CALCIUM 8.7 mg/dL (8.5-10.1); CREATININE 0.7 mg/dL (0.6-1.0); GFR 88.6; POTASSIUM 3.9 mmol/L (3.5-5.1); TOTAL BILIRUBIN 0.3 mg/dL (0.2-1.0); TOTAL PROTEIN 7.4 g/dL (6.4-8.2)
[2021-02-18 13:00] LABS: CHOLESTEROL/HDL RATIO 3.7
[2021-02-19 04:26] LABS: HEMOGLOBIN A1C 5.5 % (4.8-5.6)
== END ==
LOC: LAB 11:34
PROVIDERS: ATTEND Internal Medicine
DX: Z00.00 Encounter for general adult medical examination without abnormal findings (principal)
CPT/HCPCS: 36415; 80053; 80061; 81001; 83036; 84443; 85025

== ENCOUNTER → 2021-04-20 | Outpatient (CLI) | payer OTHER ==
[~2021-04-20] MED LIST changes: +MAGN400T48 PO; -MAGN400T5 PO
[2021-04-20 08:53] LABS: BASO # 0.1 x10^3/uL (0.0-0.2); BASO % 1 % (0-3); EOS # 0.3 x10^3/uL (0.0-0.7); EOS % 3 % (0-3); HEMATOCRIT 39.6 % (36.0-47.0); HEMOGLOBIN 13.4 g/dL (12.0-15.5); LYMPH # 1.7 x10^3/uL (1.0-4.8); LYMPH % 21 % (24-48); MEAN CORPUSCULAR HEMOGLOBIN 31 pg (25-35); MEAN CORPUSCULAR HGB CONC 34 g/dL (31-37); MEAN CORPUSCULAR VOLUME 92 fL (79-100); MONO # 0.5 x10^3/uL (0.0-1.1); MONO % 7 % (0-9); NEUT # 5.6 x10^3/uL (1.8-7.7); NEUT % 69 % (31-73); PLATELET COUNT 342 x10^3/uL (140-400); RED BLOOD COUNT 4.33 x10^6/uL (3.50-5.40); RED CELL DISTRIBUTION WIDTH 13.6 % (11.5-14.5); WHITE BLOOD COUNT 8.2 x10^3/uL (4.0-11.0)
[2021-04-20 08:54] LABS: ALBUMIN 3.6 g/dL (3.4-5.0); CALCIUM 8.6 mg/dL (8.5-10.1); CREATININE 0.8 mg/dL (0.6-1.0); GFR 75.9; POTASSIUM 4.1 mmol/L (3.5-5.1)
[2021-04-20 09:07] LABS: PROTHROMBIN TIME PATIENT 13.1 SEC (11.7-14.0)
--- NOTE | 2021-04-20 12:26 | EKG ---
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
[2021-04-21 01:22] LABS: HEMOGLOBIN A1C 5.9 % (4.8-5.6)
== END ==
LOC: SURGPAT 12:20
PROVIDERS: ATTEND Orthopaedic Surgery
DX: Z01.818 Encounter for other preprocedural examination (principal); M17.0 Bilateral primary osteoarthritis of knee; Z86.79 Personal history of other diseases of the circulatory system
CPT/HCPCS: 36415; 80048; 82040; 82306; 83036; 85025; 85610; 85651; 85730; 87641; 93005

== ENCOUNTER → 2021-04-24 | Outpatient (CLI) | payer OTHER ==
[~2021-04-24] MED LIST changes: +ATOR10TA60 PO; +FLUO20CA20 PO; +LOSA-73 PO; +METO-239 PO
[2021-04-24 08:27] VITALS: BP 134/91
== END ==
LOC: LAB 13:43
PROVIDERS: ATTEND Family Medicine
DX: R31.0 Gross hematuria (principal); N30.90 Cystitis, unspecified without hematuria
CPT/HCPCS: 87086

== ENCOUNTER 2021-05-02 10:26 | Emergency (ER) | payer OTHER ==
[~2021-05-02] VITALS: Ht 157.5 cm; Wt 101.0 kg
[~2021-05-02 10:26] MED LIST changes: +CYCL10TA19 PO; -CYCL10TA2 PO; -FLUO20CA20 PO; +FLUO20CA22 PO
[2021-05-02 11:00] VITALS: BP 137/77
--- NOTE | 2021-05-02 11:15 | PHYS DOC ---
Past Medical History Past Medical History: Anxiety, Arthritis, CHF, Depression, Hypertension, Kidney Stone Additional Past Medical Histor: lupus, chronic back problem; renal failure; pericarditis; pleurisy Past Surgical History: Cholecystectomy, Hysterectomy Additional Past Surgical Histo: kidney stone removal, adnoidectomy Smoking Status: Never Smoker Alcohol Use: None Drug Use: None General Adult EDM: Chief Complaint: KNEE INJURY HPI: HPI: Patient is a 50 year old female who presents with states that she was up wa lking last night when she felt like something " slipped" in her right knee. She states she can put a little weight on it but it feels like it catches when she tries to walk or bend the knee. She does have a planned knee replacement on May [address] Walls. She takes tramadol at home for her pain. She rates her pain 7 out of 10 at its aching. Review of Systems: Review of Systems: Constitutional: Denies fever or chills. [] Eyes: Denies change in visual acuity. [] HENT: Denies nasal congestion or sore throat. [] Respiratory: Denies cough or shortness of breath. [] Cardiovascular: Denies chest pain or edema. [] GI: Denies abdominal pain, nausea, vomiting, bloody stools or diarrhea. [] : Denies dysuria. [] Musculoskeletal: Denies back pain or +Right knee joint pain. [] Integument: Denies rash. [] Neurologic: Denies headache, focal weakness or sensory changes. [] Endocrine: Denies polyuria or polydipsia. [] Lymphatic: Denies swollen glands. [] Psychiatric: Denies depression or anxiety. [] Heart Score: C/O Chest Pain: No Allergies: Allergies: Allergies Coded Allergies Type Severity Reaction Last Updated Verified Sulfa (Sulfonamide Antibiotics) Allergy Intermediate 05/09/19 Yes sulfamethoxazole Allergy Intermediate 05/09/19 Yes trimethoprim Allergy Intermediate 05/09/19 Yes clonidine Adverse Reaction Intermediate Rash 04/23/21 Yes Physical Exam: PE: Constitutional: Well developed, well nourished, no acute distress, non-toxic appearance. [] HENT: Normocephalic, atraumatic, bilateral external ears normal, oropharynx moist, no oral exudates, nose normal. [] Eyes: PERRLA, EOMI, conjunctiva normal, no discharge. [] Neck: Normal range of motion, no tenderness, supple, no stridor. [] Cardiovascular:Heart rate regular rhythm, no murmur [] Lungs & Thorax: Bilateral breath sounds clear to auscultation [] Abdomen: Bowel sounds normal, soft, no tenderness, no masses, no pulsatile masses. [] Skin: Warm, dry, no erythema, no rash. [] Back: No tenderness, no CVA tenderness. [] Extremities: Anterior and lateral tenderness, no cyanosis, no clubbing, ROM intact but painful, no edema. [] Neurologic: Alert and oriented X 3, normal motor function, normal sensory function, no focal deficits noted. [] Psychologic: Affect normal, judgement normal, mood normal. [] EKG: EKG: [] Radiology/Procedures: Radiology/Procedures: [] Impression: [facility] [address] [place] [address] IMAGING REPORT Signed PATIENT: DOREEN ROMO ACCOUNT: [id number] : 1970 LOCATION: ER AGE: 50 SEX: F EXAM STATUS: REG ER ORD. PHYSICIAN: PATRICK CALDERÓN APRN REASON: pain, weakness PROCEDURE: KNEE RIGHT 3V Three-view right knee dated 05/02/2021. Comparison: 04/15/2021. CLINICAL INDICATION: Pain. FINDINGS: 3 views right show normal bony alignment. No displaced fracture. No periostitis or bone destruction. No acute osseous or articular abnormality. Moderate to severe tricompartmental hypertrophic changes with asymmetric medial joint space narrowing and lateral subluxation of the tibia relative to the distal femur. Findings are similar to prior study. Moderate size joint effusion. No loose body. IMPRESSION: 1. Moderate to severe tricompartmental DJD. Lateral subluxation of the tibia relative to the distal femur could be related to underlying instability. 2. Moderate size joint effusion. If there is clinical concern for occult fracture or internal derangement, MRI would better evaluate. Electronically signed by: Pilo Boyle MD (05/02/2021 11:32 AM) [id number] DICTATED and SIGNED BY: PILO BOYLE MD DATE: 05/02/21 [id number] Course & Med Decision Making: Course & Med Decision Making Pertinent Labs and Imaging studies reviewed. (See chart for details) See HPI. Alert and oriented x4. Ambulatory but limping on the right leg. No swelling or redness to the joint. There is no laxity to the joint. Tenderness to the anterior patella and lateral. Pedal pulse strong present. Cap refill less than 2 seconds. Skin pink warm and dry. Patient is placed in a knee immobilizer and given crutches. [] Dragon Disclaimer: Dragon Disclaimer: This electronic medical record was generated, in whole or in part, using a voice recognition dictation system. Departure Departure Impression: Primary Impression: Knee pain, right Qualified Codes: M25.561 - Pain in right knee Disposition: 01 HOME / SELF CARE / HOMELESS Condition: STABLE Referrals: YOSELYN SANTILLAN MD (PCP) Patient Instructions: Knee Effusion Additional Instructions: Follow up with orthopedic as soon as possible. Take medication as prescribed. PATRICK CALDERÓN APRN May 02, 2021 11:14
--- NOTE | 2021-05-02 11:35 | RAD ---
Three-view right knee dated 05/02/2021. Comparison: 04/15/2021. CLINICAL INDICATION: Pain. FINDINGS: 3 views right show normal bony alignment. No displaced fracture. No periostitis or bone destruction. No acute osseous or articular abnormality. Moderate to severe tricompartmental hypertrophic changes w ith asymmetric medial joint space narrowing and lateral subluxation of the tibia relative to the dist al femur. Findings are similar to prior study. Moderate size joint effusion. No loose body. IMPRESSION: 1. Moderate to severe tricompartmental DJD. Lateral subluxation of the tibia relative to the distal f emur could be related to underlying instability. 2. Moderate size joint effusion. If there is clinical concern for occult fracture or internal derange ment, MRI would better evaluate. Electronically signed by: Pilo Boyle MD (05/02/2021 11:32 AM) [id number]
[2021-05-13] MEDS ORDERED: ASPI325T11 PO ×2 (08:20→09:43)
[2021-05-13] MEDS ORDERED: SENN-209 PO (09:43)
[2021-05-13] MEDS ORDERED: OXYC1TAB19 PO (09:43)
[2021-05-14] MEDS ORDERED: CYCL10TA19 PO (09:19)
== END 2021-05-02 12:02 | disposition home or self-care (01) ==
LOC: ER 10:26
DX: M25.561 Pain in right knee (principal); E11.22 Type 2 diabetes mellitus with diabetic chronic kidney disease; I13.0 Hypertensive heart and chronic kidney disease with heart failure and stage 1 through stage 4 chronic kidney disease, or unspecified chronic kidney disease; N18.9 Chronic kidney disease, unspecified; I50.9 Heart failure, unspecified; G89.29 Other chronic pain; Z88.1 Allergy status to other antibiotic agents; Z88.2 Allergy status to sulfonamides; Z88.8 Allergy status to other drugs, medicaments and biological substances
CPT/HCPCS: 29505; 73562; 99283

== ENCOUNTER → 2021-05-07 | Outpatient (CLI) | payer OTHER ==
[2021-05-02 11:00] VITALS: BP 137/77
[~2021-05-07] MED LIST changes: +ASPI325T11 PO; +OXYC1TAB19 PO; +SENN-209 PO
[2021-05-07 09:42] LABS: BILIRUBIN,URINE NEGATIVE (NEG); CLARITY,URINE CLEAR; COLOR,URINE YELLOW; NITRITE,URINE NEGATIVE (NEG); PH,URINE 5.5 (<5.0-8.0); PROTEIN,URINE NEGATIVE (NEG-TRACE); UROBILINOGEN,URINE 0.2 mg/dL (0.2 mg/dL)
[2021-05-07 10:11] LABS: BACTERIA,URINE 0 /HPF (0-FEW); RBC,URINE 0 /HPF (0-2); WBC,URINE 0 /HPF (0-4)
== END ==
LOC: LAB 08:18
PROVIDERS: ATTEND Family Medicine
DX: N30.90 Cystitis, unspecified without hematuria (principal)
CPT/HCPCS: 81001; 87086

== ENCOUNTER 2021-05-11 05:51 | Observation (INO) | payer OTHER ==
[2021-04-24 08:27] VITALS: BP 134/91
[2021-05-11] VITALS (9 sets, daily range): BP systolic 100–149; BP diastolic 64–97
[~2021-05-11] VITALS: Ht 157.5 cm; Wt 101.6 kg
[~2021-05-11 05:51] MED LIST changes: -ASPI325T11 PO; -OXYC1TAB19 PO; -SENN-209 PO
[2021-05-11] MEDS ORDERED: PROCHLORPERAZINE 10 MG/2 ML VIAL. IVP PRN (06:00)
[2021-05-11] MEDS ORDERED: ACETAMINOPHEN 500 MG TABLET PO PRN (06:00)
[2021-05-11] MEDS ORDERED: fentaNYL PF VIAL 100 MCG/2 ML VIAL IVP PRN ×2 (06:00→12:00)
[2021-05-11] MEDS ORDERED: GABAPENTIN 300 MG CAPSULE. PO PRN (06:00)
[2021-05-11] MEDS ORDERED: MELOXICAM 7.5 MG TABLET PO PRN (06:00)
[2021-05-11] MEDS ORDERED: IV RINGERS,LACTATED 1000ML 1,000 ML IV SCH (06:00)
[2021-05-11] MEDS ORDERED: TV=62ml MORPHINE 5 MG, KETOROLAC 30 MG, ROPIV, EPI INT ART ONE (06:00)
[2021-05-11] MEDS ORDERED: TRANEXAMIC ACID 1,000 MG in IV NS 50ML -- 1ST BAG INJ ONE (06:00)
[2021-05-11] MEDS ORDERED: ONDANSETRON PF 4 MG/2 ML VIAL. ONE (06:19)
[2021-05-11] MEDS ORDERED: DEXAMETHASONE SOD PHOS 4 MG/ML VIAL ONE (06:19)
[2021-05-11] MEDS ORDERED: LIDOCAINE 2% PF 5 ML VIAL. ONE (06:19)
[2021-05-11] MEDS ORDERED: PROPOFOL 10 MG/ML (20ML) VIAL. IV ONE (06:20)
--- NOTE | 2021-05-11 06:50 | NUR ---
Recvd call from blood bank stating patient has no antibodies therefore if blood transfusion is needed it will take time to get blood. Addendum: 05/11/21 at 0814 by Pablo Joy RN CORRECTION TO NOTE: PAS DOES HAVE ANTIBODIES
[2021-05-11] MEDS ORDERED: PROPOFOL 0 ML IV ONE (06:54)
[2021-05-11] MEDS ORDERED: MIDAZOLAM HCL/PF 2 MG/2 ML VIAL. ONE (06:59)
[2021-05-11] MEDS ORDERED: fentaNYL PF VIAL 100 MCG/2 ML VIAL ONE ×2 (07:00→09:22)
[2021-05-11] MEDS ORDERED: TRANEXAMIC ACID in NS IVPB 50 ML ONE (07:19)
[2021-05-11] MEDS ORDERED: VANCOMYCIN 1 GM VIAL. ONE (07:19)
[2021-05-11] MEDS ORDERED: TRANEXAMIC ACID in NS IVPB 0 ML ONE (07:30)
[2021-05-11] MEDS ORDERED: HYDROmorphone 2 MG/ML VIAL ONE ×2 (07:53→09:54)
[2021-05-11] MEDS ORDERED: 0.9 % SODIUM CHLORIDE 20 ML VIAL. IJ ONE (07:55)
[2021-05-11] MEDS ORDERED: LABETALOL 20 MG/4 ML DISP.SYRIN. IVP ONE (07:58)
[2021-05-11] MEDS ORDERED: TRANEXAMIC ACID 1,000 MG in IV NS 50ML -- 2ND BAG INJ ONE (08:00)
[2021-05-11] MEDS ORDERED: KETAMINE HCL IN NACL, ISO-OSM 50 MG/5 ML SYRINGE ONE (08:02)
--- NOTE | 2021-05-11 09:11 | PDOC4 ---
OPERATIVE NOTE Date: Date: May 11, 2021 Pre-Op Diagnosis: Severe degenerative joint disease right knee Post-Op Diagnosis: Same Procedure Performed: Right total knee arthroplasty Surgeon: Titi Anesthesia Type: General Blood Loss: 50 cc Specimans Obtained: None Findings: See dictation Complications: None INDIGO MAHER Jr., DO May 11, 2021 09:11
[2021-05-11] MEDS ORDERED: PROCHLORPERAZINE 10 MG/2 ML VIAL. ONE (09:15)
[2021-05-11] MEDS ORDERED: MORPHINE SULFATE 2 MG/ML INJ. ONE ×2 (09:15→09:41)
[2021-05-11] MEDS: MORPHINE SULFATE 2 MG/ML INJ. IVP PRN ×4 (09:18→09:54)
[2021-05-11] MEDS: fentaNYL PF VIAL 100 MCG/2 ML VIAL IVP PRN ×2 (09:37→09:48)
--- NOTE | 2021-05-11 09:40 | OP ---
DATE OF SURGERY: 05/11/2021 PREOPERATIVE DIAGNOSIS: Severe degenerative joint disease, right knee. POSTOPERATIVE DIAGNOSIS: Severe degenerative joint disease, right knee. PROCEDURE: Right total knee arthroplasty. COMPONENTS: It is a size 4 femur, size 4 tibia, 9 mm poly tibial insert and a 32 patella. SURGEON: Akash Walls MD. LOW PRESSURE KETTLE OPERATOR: Dorian Nobles MD. TYPE OF ANESTHESIA: General. COMPLICATIONS: None. ESTIMATED BLOOD LOSS: 50 mL. Standard dictation for plastic surgery assistant. DESCRIPTION OF PROCEDURE: The patient was taken to the operative suite, given general anesthetic. Right lower extremity was then prepped and draped in sterile fashion. After exsanguination, tourniquet was inflated. An incision was made through skin and subcutaneous tissues. The medial parapatellar incision was then made. Due to the contracture medially, a partial release was undertaken of the capsule medially. The patella was everted, measured and cut to the appropriate size. This was drilled for the standard implant, which was an offset implant size 32. The attention was then directed to the femur. The drill was placed in the distal femur. The intramedullary guide was placed along with a distal cutting block. This was placed in appropriate position and orientation and marked. The appropriate distal cut was made. Following this, the sizing guide was then placed in appropriate position. This was noted to be a size 4. Therefore, after this was marked for proper rotation and orientation. The drill holes were made for the 4-in-1 guide and then the 4-in-1 guide was subsequently placed on the distal femoral cut. This was held with pins and the anterior, posterior and the chamfer cuts were made. Following this, attention was directed to the tibia where the retractors were placed medially, laterally and posteriorly. After removal of the medial and lateral meniscal remnants as well as the ACL, the PCL remained intact. The external tibial guide was placed in appropriate position and orientation and the proximal tibia was then cut. This was noted to be a good flush cut. This was trialled using a size 4, which appeared to be the appropriate size after removal of osteophytes off the tibial side. There was full extension capability and flexion was up to 115 degrees without any liftoff of the tibial plate. Therefore, this was marked for rotation and after this was held with pins as far as the tibial side of the guide, the punch was then placed into appropriate position and the 4 drill holes were made at that point. Following this, this was copiously irrigated again, as it was throughout the case. The tibia was then placed in appropriate position. The 9 mm poly was then placed. The femoral component was placed. This was all impacted and noted to be significantly stable. The same was done on the patella, which was held with a clamp. After all pieces were noted to be completely flush and intact and stable. This was then thoroughly irrigated again. The Betadine wash was then placed within the knee joint as well as vancomycin powder. The medial parapatellar incision was then closed using a Stratafix in a running situation. This was then taken through range of motion. There were no leaks from the intraarticular portion of the knee. Therefore, a superficial tissue and skin was reapproximated. Sterile dressing was applied. The patient was then taken from the operative bed to the postoperative bed and taken to PACU in stable condition. GURDEEP DR: Leti TID: [id number]
[2021-05-11] MEDS: HYDROmorphone 2 MG/ML VIAL IVP PRN ×5 (09:57→22:13)
--- NOTE | 2021-05-11 10:30 | NUR ---
admitted from recovery. she has good motion, pulses and sensation bilateral lower extremities. she is rating her pain an "8" but she falls asleep quickly. admission history completed family at bedside.
--- NOTE | 2021-05-11 10:36 | RAD ---
Site ID: [id number] views of the right knee. Indication: post total knee arthroplasty Findings: There is femoral and tibial prosthesis with patellar resurfacing and prosthesis seen. Anterior soft t issue post-operative changes are seen. Impression: Baseline post right knee arthroplasty in good alignment. Electronically signed by: Jorge Crawford MD (05/11/2021 10:33 AM) [id number]
--- NOTE | 2021-05-11 11:59 | PDOC1 ---
History and Physical Date of Admission Date of Admission DATE: 05/11/21 TIME: 11:59 Identification/Chief Complaint Chief Complaint Right knee severe OA Source Source: Patient History of Present Illness History of Present Illness Ms Albert is a 50-year-old female w/ PMHx SLE and recently diagnosed severe osteoarthritis of right knee admitted for right total knee arthroplasty. Pain required multiple postoperative doses of Dilaudid and Compazine for nausea. Seen with family bedside able to bear weight on her right knee recently as well. Seen postoperatively bedside spirometer. Pre-op UA normal. No complaints other than 7/10 knee pain at this time. No CP or SOB. Past Medical History Cardiovascular: No pertinent hx Pulmonary: Asthma, Bronchitis GI: GERD Heme/Onc: Other Musculoskeletal: Osteoarthritis Rheumatologic: Other (SLE) Past Surgical History Past Surgical History hysterectomy, adenoidectomy, also a kidney stone removed. 2019 Cystocele and rectocele repair - anterior and posterior colpoperineorrhaphy Past Surgical History: Tonsillectomy, Hysterectomy Family History Family History reviewed Family History: No Significant Social History Smoke: No ALCOHOL: none Drugs: None Current Medications Current Medications Current Medications Fentanyl Citrate (Fentanyl 2ml Vial) 25 mcg PRN Q5MIN PRN IVP MILD PAIN 1-3 Last administered on 05/11/21at 09:48; Start 05/11/21 at 06:00; Stop 05/12/21 at 05:59 Fentanyl Citrate (Fentanyl 2ml Vial) 50 mcg PRN Q5MIN PRN IVP MODERATE PAIN 4-6 Last administered on 05/11/21at 09:24; Start 05/11/21 at 06:00; Stop 05/12/21 at 05:59 Morphine Sulfate (Morphine Sulfate) 1 mg PRN Q10MIN PRN IVP SEVERE PAIN 7-10 Last administered on 05/11/21at 09:54; Start 05/11/21 at 06:00; Stop 05/12/21 at 05:59 Ringer's Solution 1,000 ml @ 30 mls/hr Q24H IV Last administered on 05/11/21at 06:28; Start 05/11/21 at 06:00; Stop 05/11/21 at 17:59 Hydromorphone HCl (Dilaudid) 0.5 mg PRN Q10MIN PRN IVP SEVERE PAIN 7-10, 2nd CHOICE Last administered on 05/11/21at 10:28; Start 05/11/21 at 06:00; Stop 05/12/21 at 05:59 Prochlorperazine Edisylate (Compazine) 5 mg PACU PRN PRN IVP NAUSEA, MRX1 Last administered on 05/11/21at 09:17; Start 05/11/21 at 06:00; Stop 05/12/21 at 05:59 Cefazolin Sodium/ Dextrose 50 ml @ 100 mls/hr 1X PREOP PRN IV PRIOR TO PROCEDURE Last administered on 05/11/21at 07:38; Start 05/11/21 at 06:00; Stop 05/11/21 at 18:00 Morphine Sulfate 5 mg/Ketorolac Tromethamine 30 mg/Ropivacaine 60 ml/Epinephrine HCl 0.5 mg/ Miscellaneous 63 ml @ 63 mls/hr 1X PERIOP ONCE INT ART Last adm inistered on 05/11/21at 07:54; Start 05/11/21 at 06:00; Stop 05/11/21 at 06:59; Status DC Meloxicam (Mobic) 15 mg 1X PREOP PRN PO PRIOR TO PROCEDURE Last administered on 05/11/21at 06:28; Start 05/11/21 at 06:00; Stop 05/11/21 at 18:00 Gabapentin (Neurontin) 600 mg 1X PREOP PRN PO PRIOR TO PROCEDURE Last administered on 05/11/21at 06:29; Start 05/11/21 at 06:00; Stop 05/11/21 at 18:00 Acetaminophen (Tylenol) 1,000 mg 1X PREOP PRN PO PRIOR TO PROCEDURE Last administered on 05/11/21at 06:29; Start 05/11/21 at 06:00; Stop 05/11/21 at 18:00 Tranexamic Acid 50 ml @ 50 mls/hr 1X PERIOP ONCE INJ Last administered on 05/11/21at 07:54; Start 05/11/21 at 06:00; Stop 05/11/21 at 06:59; Status DC Tranexamic Acid 50 ml @ 50 mls/hr 1X PERIOP ONCE INJ ; Start 05/11/21 at 08:00; Stop 05/11/21 at 08:59; Status DC Dexamethasone Sodium Phosphate (Decadron) 4 mg STK-MED ONCE .ROUTE ; Start 05/11/21 at 06:19; Stop 05/11/21 at 06:19; Status DC Ondansetron HCl (Zofran) 4 mg STK-MED ONCE .ROUTE ; Start 05/11/21 at 06:19; Stop 05/11/21 at 06:20; Status DC Lidocaine HCl (Lidocaine Pf 2% Vial) 5 ml STK-MED ONCE .ROUTE ; Start 05/11/21 at 06:19; Stop 05/11/21 at 06:20; Status DC Propofol (Diprivan) 200 mg STK-MED ONCE IV ; Start 05/11/21 at 06:20; Stop 05/11/21 at 06:20; Status DC Propofol 0 ml @ As Directed STK-MED ONCE IV ; Start 05/11/21 at 06:54; Stop 05/11/21 at 06:55; Status DC Midazolam HCl (Versed) 2 mg STK-MED ONCE .ROUTE ; Start 05/11/21 at 06:59; Stop 05/11/21 at 07:00; Status DC Fentanyl Citrate (Fentanyl 2ml Vial) 100 mcg STK-MED ONCE .ROUTE ; Start 05/11/21 at 07:00; Stop 05/11/21 at 07:01; Status DC Tranexamic Acid 50 ml @ As Directed STK-MED ONCE .ROUTE ; Start 05/11/21 at 07:19; Stop 05/11/21 at 07:19; Status DC Vancomycin HCl (Vancomycin) 1 gm STK-MED ONCE .ROUTE Last administered on 05/11/21at 07:54; Start 05/11/21 at 07:19; Stop 05/11/21 at 07:19; Status DC Tranexamic Acid 0 ml @ As Directed STK-MED ONCE .ROUTE ; Start 05/11/21 at 07:30; Stop 05/11/21 at 07:30; Status DC Hydromorphone HCl (Dilaudid) 2 mg STK-MED ONCE .ROUTE ; Start 05/11/21 at 07:53; Stop 05/11/21 at 07:53; Status DC Sodium Chloride (SODIUM CHLORIDE 20ml) 20 ml STK-MED ONCE IJ ; Start 05/11/21 at 07:55; Stop 05/11/21 at 07:55; Status DC Labetalol HCl (Normodyne Iv Push) 20 mg STK-MED ONCE IVP ; Start 05/11/21 at 07:58; Stop 05/11/21 at 07:58; Status DC Ketamine HCl (Ketamine) 50 mg STK-MED ONCE .ROUTE ; Start 05/11/21 at 08:02; Stop 05/11/21 at 08:02; Status DC Morphine Sulfate (Morphine Sulfate) 2 mg STK-MED ONCE .ROUTE ; Start 05/11/21 at 09:15; Stop 05/11/21 at 09:15; Status DC Prochlorperazine Edisylate (Compazine) 10 mg STK-MED ONCE .ROUTE ; Start 05/11/21 at 09:15; Stop 05/11/21 at 09:15; Status DC Fentanyl Citrate (Fentanyl 2ml Vial) 100 mcg STK-MED ONCE .ROUTE ; Start 05/11/21 at 09:22; Stop 05/11/21 at 09:23; Status DC Morphine Sulfate (Morphine Sulfate) 2 mg STK-MED ONCE .ROUTE ; Start 05/11/21 at 09:41; Stop 05/11/21 at 09:41; Status DC Hydromorphone HCl (Dilaudid) 2 mg STK-MED ONCE .ROUTE ; Start 05/11/21 at 09:54; Stop 05/11/21 at 09:55; Status DC Active Scripts Active Reported Metoprolol Succinate ( Xl ) (Metoprolol Succinate) 25 Mg Tab.er.24h 25 Mg PO HS Losartan Potassium 50 Mg Tablet 50 Mg PO HS Fluoxetine Hcl 20 Mg Capsule 20 Mg PO DAILY Atorvastatin Calcium 10 Mg Tablet 10 Mg PO HS Tramadol Hcl 50 Mg Tablet 50 Mg PO TID PRN PRN Diclofenac Sodium 75 Mg Tablet.dr 1 Tab PO BID Neurontin (Gabapentin) 300 Mg Capsule 300 Mg PO TID Plaquenil (Hydroxychloroquine Sulfate) 200 Mg Tablet 200 Mg PO BID Procardia Xl (Nifedipine) 60 Mg Tab.er.24 60 Mg PO Allergies Allergies: Coded Allergies: Sulfa (Sulfonamide Antibiotics) (Verified Allergy, Intermediate, 05/11/21) sulfamethoxazole (Verified Allergy, Intermediate, 05/11/21) trimethoprim (Verified Allergy, Intermediate, 05/11/21) clonidine (Verified Adverse Reaction, Intermediate, Rash, 05/11/21) ROS General: No: Chills, Night Sweats, Fatigue, Malaise, Appetite, Other PSYCHOLOGICAL ROS: No: Anxiety, Behavioral Disorder, Concentration difficultie, Decreased libido, Depression, Disorientation, Hallucinations, Hostility, Irritablity, Memory difficulties, Mood Swings, Obsessive thoughts, Physical abuse, Sexual abuse, Sleep disturbances, Suicidal ideation, Other Eyes: No Blurry vision, No Decreased vision, No Double vision, No Dry eyes, No Excessive tearing, No Eye Pain, No Itchy Eyes, No Loss of vision, No Photophobia, No Scotomata, No Uses contacts, No Uses glasses, No Other HEENT: No: Heacaches, Visual Changes, Hearing change, Nasal congestion, Nasal discharge, Oral lesions, Sinus pain, Sore Throat, Epistaxis, Sneezing, Snoring, Tinnitus, Vertigo, Vocal changes, Other ALLERGY AND IMMUNOLOGY: No: Hives, Insect Bite Sensitivity, Itchy/Watery Eyes, Nasal Congestion, Post Nasal Drip, Seasonal Allergies, Other Hematological and Lymphatic: No: Bleeding Problems, Blood Clots, Blood Transfusions, Brusing, Night Sweats, Pallor, Swollen Lymph Nodes, Other ENDOCRINE: No: Breast Changes, Galactorrhea, Hair Pattern Changes, Hot Flashes, Malaise/lethargy, Mood Swings, Palpitations, Polydipsia/polyuria, Skin Changes, Temperature Intolerance, Unexpected Weight Changes, Other Breast: No New/Changing Breast Lumps, No Nipple changes, No Nipple discharge, No Other Respiratory: No: Cough, Hemoptysis, Orthopnea, Pleuritic Pain, Shortness of breath, SOB with excertion, Sputum Changes, Stridor, Tachypnea, Wheezing, Other Cardiovascular: No Chest Pain, No Palpitations, No Orthopnea, No Paroxysmal Noc. Dyspnea, No Edema, No Lt Headedness, No Other Gastrointestinal: No Nausea, No Vomiting, No Abdominal Pain, No Diarrhea, No Constipation, No Melena, No Hematochezia, No Other Genitourinary: No Dysuria, No Frequency, No Incontinence, No Hematuria, No Retention, No Discharge, No Urgency, No Pain, No Flank Pain, No Other, No , No , No , No , No , No , No Musculoskeletal: No Gait Disturbance, No Joint Pain, No Joint Stiffness, No Joint Swelling, No Muscle Pain, No Muscular Weakness, No Pain In:, No Swelling In:, No Other Neurological: No Behavorial Changes, No Bowel/Bladder ControlChng, No Confusi on, No Dizziness, No Gait Disturbance, No Headaches, No Impaired Coord/balance, No Memory Loss, No Numbness/Tingling, No Seizures, No Speech Problems, No Tremors, No Visual Changes, No Weakness, No Other Skin: No Dry Skin, No Eczema, No Hair Changes, No Lumps, No Mole Changes, No Mottling, No Nail Changes, No Pruritus, No Rash, No Skin Lesion Changes, No Other, No Acne Physical Exam General: Alert, Oriented X3, Cooperative, No acute distress HEENT: Atraumatic, PERRLA, EOMI, Mucous membr. moist/pink Lungs: Clear to auscultation, Normal air movement Heart: S1S2, RRR, no thrills, no rubs, no gallops, no murmurs Abdomen: Normal bowel sounds, Soft, No tenderness, No hepatosplenomegaly, No masses Rectal Exam: not examined Extremities: Other (Right knee in WILDER wrap) Skin: No rashes, No breakdown, No significant lesion Neuro: Normal speech, Strength at 5/5 X4 ext, Normal tone, Sensation intact, Cranial nerves 3-12 NL, Reflexes 2+ Psych/Mental Status: Mental status NL, Mood NL Vitals Vitals Vital Signs Date Time Temp Pulse Resp B/P (MAP) Pulse Ox O2 Delivery O2 Flow Rate FiO2 05/11/21 11:40 72 114/73 (87) 05/11/21 11:00 Nasal Cannula 2.0 05/11/21 10:38 18 92 05/11/21 09:26 98.2 98.2 VTE Prophylaxis Ordered VTE Prophylaxis Devices: Yes VTE Pharmacological Prophylaxi: Yes Assessment/Plan Assessment/Plan A/P: Right knee severe OA - tolerated TKR well. Seen post-op. PT, pain control, IS, bowel regimen Lupus - cont meds Heart palpitations - on toprol QHS and nifedipine during the day, continue justin- operatively obesity, BMI 41, counseled on lifestyle modification FEN - Regular diet PPX - lovenox post op given lupus history FULL CODE Dispo - inpatient Justifications for Admission Other Justification CHARLIE VALDEZ MD May 11, 2021 11:59
[2021-05-11] MEDS ORDERED: ONDANSETRON PF 4 MG/2 ML VIAL. IVP PRN (12:00)
--- NOTE | 2021-05-11 13:55 | NUR ---
awake family at bedside. she is rating her pain a"7" she ambulated to the bathroom; she was unable to void. up in recliner. food brought in.
[2021-05-11] MEDS ORDERED: POLYETHYLENE GLYCOL 3350 17 GM PACKET. PO PRN (14:15)
[2021-05-11] MEDS: FLUoxetine HCL 20 MG CAPSULE PO SCH ×2 (14:30→15:24)
[2021-05-11] MEDS: GABAPENTIN 300 MG CAPSULE. PO SCH ×2 (15:24→20:39)
[2021-05-11] MEDS: ACETAMINOPHEN 325 MG TABLET. PO PRN (15:30)
[2021-05-11] MEDS ORDERED: ENOXAPARIN 40 MG/0.4 ML SYRINGE. SQ SCH (20:00)
[2021-05-11] MEDS: SENNOSIDES/DOCUSATE 8.6/50MG TABLET. PO SCH (20:39)
[2021-05-11] MEDS: PSYLLIUM HUSK (SUGAR FREE) 1 PKT PACKET PO SCH (20:39)
[2021-05-11] MEDS: ATORVASTATIN CALCIUM 10 MG TABLET. PO SCH (20:39)
[2021-05-11] MEDS: LOSARTAN POTASSIUM 50 MG TABLET. PO SCH (20:40)
[2021-05-11] MEDS: HYDROXYCHLOROQUINE 200 MG TABLET PO SCH (20:40)
[2021-05-11] MEDS: METOPROLOL SUCC 24HR ER 25 MG TAB.ER.24H. PO SCH (20:41)
--- NOTE | 2021-05-11 20:55 | NUR ---
Jesus scheduled at 1999. Call to Pharmacy and was told to hold dose tonight and it would be rescheduled for next am. Pharmacy stated she would reschedule dose.
[2021-05-12] MEDS: ACETAMINOPHEN 325 MG TABLET. PO PRN (01:23)
[2021-05-12] MEDS: HYDROmorphone 2 MG/ML VIAL IVP PRN ×7 (01:24→23:10)
[2021-05-12 03:00] VITALS: BP 124/79
[2021-05-12 04:44] LABS: HEMATOCRIT 34.2 % (36.0-47.0); HEMOGLOBIN 11.4 g/dL (12.0-15.5); RED BLOOD COUNT 3.72 x10^6/uL (3.50-5.40); RED CELL DISTRIBUTION WIDTH 13.4 % (11.5-14.5); WHITE BLOOD COUNT 12.9 x10^3/uL (4.0-11.0)
[2021-05-12 05:04] LABS: ALBUMIN 3.2 g/dL (3.4-5.0); ALBUMIN/GLOBULIN RATIO 0.8 (1.0-1.7); CALCIUM 8.6 mg/dL (8.5-10.1); CREATININE 0.9 mg/dL (0.6-1.0); GFR 66.3; POTASSIUM 4.1 mmol/L (3.5-5.1); TOTAL BILIRUBIN 0.4 mg/dL (0.2-1.0)
[2021-05-12 09:22] VITALS: BP 148/91
[2021-05-12] MEDS: oxyCODONE/APAP 7.5/325 1 TAB TABLET PO PRN ×4 (09:26→21:15)
[2021-05-12] MEDS: HYDROXYCHLOROQUINE 200 MG TABLET PO SCH ×2 (09:26→21:15)
[2021-05-12] MEDS: SENNOSIDES/DOCUSATE 8.6/50MG TABLET. PO SCH ×2 (09:26→21:15)
[2021-05-12] MEDS: FLUoxetine HCL 20 MG CAPSULE PO SCH (09:27)
[2021-05-12] MEDS: GABAPENTIN 300 MG CAPSULE. PO SCH ×3 (09:27→21:15)
[2021-05-12] MEDS: ENOXAPARIN 40 MG/0.4 ML SYRINGE. SQ SCH (09:28)
[2021-05-12 09:34] VITALS: BP 148/91
--- NOTE | 2021-05-12 13:29 | PDOC ---
[facility] PROGRESS NOTE Date of Service DOS: DATE: 05/12/21 TIME: 13:27 Chief Complaint Chief Complaint Postop right total knee arthroscopy Osteoarthritis Asthma GERD Lupus Hyperlipidemia Hypertension Neuropathy Depression Anxiety History of Present Illness History of Present Illness 05/12/2021 Patient seen and examined Discussed with RN Chart reviewed Patient up in the chair still having a lot of pain We will try some Percocet 7.5 every 3 Vitals/I&O Vitals/I&O: Vital Signs Date Time Temp Pulse Resp B/P (MAP) Pulse Ox O2 Delivery O2 Flow Rate FiO2 05/12/21 13:05 20 Room Air 05/12/21 11:30 94 05/12/21 09:34 97.6 65 148/91 (110) 2.5 97.6 I & O 05/11/21 05/11/21 05/12/21 15:00 23:00 07:00 Intake Total 100 ml 300 ml Output Total 50 ml 200 ml 200 ml Balance -50 ml -100 ml 100 ml Physical Exam General: Alert, Oriented X3, Cooperative, No acute distress Abdomen: Normal bowel sounds, Soft, No tenderness, No hepatosplenomegaly, No masses Extremities: Other (Right knee in WILDER wrap) Skin: No rashes, No breakdown, No significant lesion Labs Labs: Laboratory Tests Test 05/12/21 04:20 White Blood Count 12.9 x10^3/uL (4.0-11.0) Red Blood Count 3.72 x10^6/uL (3.50-5.40) Hemoglobin 11.4 g/dL (12.0-15.5) Hematocrit 34.2 % (36.0-47.0) Mean Corpuscular Volume 92 fL (79-100) Mean Corpuscular Hemoglobin 31 pg (25-35) Mean Corpuscular Hemoglobin Concent 33 g/dL (31-37) Red Cell Distribution Width 13.4 % (11.5-14.5) Platelet Count 353 x10^3/uL (140-400) Sodium Level 137 mmol/L (136-145) Potassium Level 4.1 mmol/L (3.5-5.1) Chloride Level 101 mmol/L (98-107) Carbon Dioxide Level 26 mmol/L (21-32) Anion Gap 10 (6-14) Blood Urea Nitrogen 13 mg/dL (7-20) Creatinine 0.9 mg/dL (0.6-1.0) Estimated GFR (Cockcroft-Gault) 66.3 BUN/Creatinine Ratio 14 (6-20) Glucose Level 122 mg/dL (70-99) Calcium Level 8.6 mg/dL (8.5-10.1) Total Bilirubin 0.4 mg/dL (0.2-1.0) Aspartate Amino Transf (AST/SGOT) 34 U/L (15-37) Alanine Aminotransferase (ALT/SGPT) 54 U/L (14-59) Alkaline Phosphatase 131 U/L (46-116) Total Protein 7.0 g/dL (6.4-8.2) Albumin 3.2 g/dL (3.4-5.0) Albumin/Globulin Ratio 0.8 (1.0-1.7) Assessment and Plan Assessmemt and Plan Postop right total knee arthroscopy Osteoarthritis Asthma GERD Lupus Hyperlipidemia Hypertension Neuropathy Depression Anxiety Plan Wound care PT OT I am adding in Percocet 7.5 mg every 3 as needed Home meds DVT prophylaxis Full code We will follow along with you Comment Review of Relevant I have reviewed the following items ramses (where applicable) has been applied. Medications: Current Medications Medications (Trade) Dose Ordered Sig/Belkis Route PRN Reason Start Time Stop Time Status Last Admin Dose Admin Cefazolin Sodium/ Dextrose 50 ml @ 100 mls/hr Q8H IV 05/11/21 15:30 05/12/21 07:59 DC 05/12/21 08:06 Psyllium Hydrophilic Mucilloid (Metamucil Fiber Packet) 1 pkt QHS PO 05/11/21 21:00 05/11/21 20:39 Hydromorphone HCl (Dilaudid) 1 mg PRN Q3HRS PRN IVP MODERATE TO SEVERE PAIN 05/11/21 13:45 05/12/21 10:59 Atorvastatin Calcium (Lipitor) 10 mg HS PO 05/11/21 21:00 05/11/21 20:39 Fluoxetine HCl (PROzac) 20 mg DAILY PO 05/11/21 14:30 05/12/21 09:27 Gabapentin (Neurontin) 300 mg TID PO 05/11/21 15:00 05/12/21 09:27 Hydroxychloroquine Sulfate (Plaquenil) 200 mg BID PO 05/11/21 21:00 05/12/21 09:26 Losartan Potassium (Cozaar) 50 mg HS PO 05/11/21 21:00 05/11/21 20:40 Metoprolol Succinate (Toprol Xl) 25 mg HS PO 05/11/21 21:00 05/11/21 20:41 Nifedipine (Procardia Xl) 60 mg DAILY PO 05/11/21 15:00 05/12/21 09:27 Senna/Docusate Sodium (Senna Plus) 2 tab BID PO 05/11/21 21:00 05/12/21 09:26 Enoxaparin Sodium (Lovenox 40mg Syringe) 40 mg Q24H SQ 05/12/21 09:00 05/12/21 09:28 Oxycodone/ Acetaminophen (Percocet 7.5/ 325) 1 tab PRN Q3HRS PRN PO PAIN 05/12/21 08:30 05/12/21 13:05 Justifications for Admission Other Justification JHOAN KING III DO May 12, 2021 13:29
[2021-05-12 18:30] VITALS: BP 157/98
[2021-05-12] MEDS: ATORVASTATIN CALCIUM 10 MG TABLET. PO SCH (21:15)
[2021-05-12] MEDS: LOSARTAN POTASSIUM 50 MG TABLET. PO SCH (21:16)
[2021-05-12] MEDS: METOPROLOL SUCC 24HR ER 25 MG TAB.ER.24H. PO SCH (21:16)
[2021-05-12] MEDS: PSYLLIUM HUSK (SUGAR FREE) 1 PKT PACKET PO SCH (21:18)
[2021-05-13] MEDS: oxyCODONE/APAP 7.5/325 1 TAB TABLET PO PRN ×6 (01:25→21:38)
[2021-05-13] MEDS: HYDROmorphone 2 MG/ML VIAL IVP PRN (03:36)
[2021-05-13 06:56] VITALS: BP 129/83
[2021-05-13] MEDS ORDERED: ASPI325T11 PO ×2 (08:20→09:43)
[2021-05-13] MEDS: GABAPENTIN 300 MG CAPSULE. PO SCH ×3 (08:59→21:38)
[2021-05-13] MEDS: HYDROXYCHLOROQUINE 200 MG TABLET PO SCH ×2 (08:59→21:38)
[2021-05-13] MEDS: FLUoxetine HCL 20 MG CAPSULE PO SCH (08:59)
[2021-05-13] MEDS: SENNOSIDES/DOCUSATE 8.6/50MG TABLET. PO SCH ×2 (08:59→21:37)
[2021-05-13] MEDS: DICLOFENAC SODIUM 25 MG TABLET.DR PO SCH ×2 (09:00→21:38)
[2021-05-13] MEDS: ENOXAPARIN 40 MG/0.4 ML SYRINGE. SQ SCH (09:00)
[2021-05-13] MEDS: traMADol 50 MG TABLET PO PRN ×2 (09:00→13:52)
[2021-05-13] MEDS ORDERED: SENN-209 PO (09:43)
[2021-05-13] MEDS ORDERED: OXYC1TAB19 PO (09:43)
--- NOTE | 2021-05-13 09:48 | PDOC ---
[facility] [facility] PROGRESS NOTE Date of Service DOS: DATE: 05/13/21 TIME: 09:46 Chief Complaint Chief Complaint Postop right total knee arthroscopy Osteoarthritis Asthma GERD Lupus Hyperlipidemia Hypertension Neuropathy Depression Anxiety History of Present Illness History of Present Illness Seen POD #2 right TKA. Had a BM this morning. last IV dilaudid dose 0400, taking percocet 7.5mg 6 times daily, has been up to bathroom with OT. No SOB or CP. She discussed with ortho 325mg ASA and diclofenac BID at home, home health, outpat ient f/u. She plans on staying with her mother. Labs stable. Tentative plan on d/c later today if her pain is under control. Of note, she does take tramadol at home, and it is not effectively controlling her pain. 6 day script for percocet sent to [facility]. 05/12/2021 Patient seen and examined Discussed with RN Chart reviewed Patient up in the chair still having a lot of pain We will try some Percocet 7.5 every 3 Vitals/I&O Vitals/I&O: Vital Signs Date Time Temp Pulse Resp B/P (MAP) Pulse Ox O2 Delivery O2 Flow Rate FiO2 05/13/21 09:00 20 05/13/21 08:59 81 126/81 05/13/21 07:18 Room Air 05/13/21 06:56 98.7 94 98.7 05/12/21 09:34 2.5 I & O 05/12/21 05/12/21 05/13/21 15:00 23:00 07:00 Intake Total 280 ml Output Total 0 ml Balance 280 ml 0 ml Physical Exam General: Alert, Oriented X3, Cooperative, No acute distress Abdomen: Normal bowel sounds, Soft, No tenderness, No hepatosplenomegaly, No masses Extremities: Other (Right knee in WILDER wrap) Skin: No rashes, No breakdown, No significant lesion Comment Review of Relevant I have reviewed the following items ramses (where applicable) has been applied. Medications: Current Medications Medications (Trade) Dose Ordered Sig/Belkis Route PRN Reason Start Time Stop Time Status Last Admin Dose Admin Tramadol HCl (Ultram) 50 mg TID PRN PRN PO PAIN 05/13/21 08:30 05/13/21 09:00 Diclofenac Sodium (Voltaren) 75 mg BID PO 05/13/21 09:00 05/13/21 09:00 Justifications for Admission Other Justification CHARLIE VALDEZ MD May 13, 2021 09:48
--- NOTE | 2021-05-13 12:13 | SNU/HH DC ---
DISCHARGE WITH HOME HEALTH DISCHARGE INFORMATION: Discharge Date: May 14, 2021 Final Diagnosis: Right knee osteoarthritis Condition on Discharge: Stable CODE STATUS: Code Status: Full HOME HEALTH: Face to Face: I certify this patient is under my care and that I, or a nurse practitioner or physician's visitor service assistant working with me, had a face to face encounter that meets the physician face to face encounter requirements with this patient on 05/13/2021. Medical Complications: HTN, S/P Joint Replacement Alf For: Medication Management, Pain Management RN For Eval/Treatment: Yes Physical Therapy For: Evalulation/Treatment Occupational Therapy For: Evaluation/Treatment Pt Meets Homebound Status: Limited distance walking, Poor cognition POST DISCHARGE ORDERS: Activity Instructions for Disc: Activity as tolerated Weight Bearing Status after Di: As tolerated Bathing Instructions: Shower-keep dressing dry, No Tub Bath until see Dr. HAHN AFTER DISCHARGE: Cardiac Wound/Incision Care: Keep wound/cast CDI CHECKS AFTER DISCHARGE: Checks after discharge: Check blood press - daily, Weigh Yourself Daily FOLLOW-UP: Additional Instructions: [facility] [address] [address] [facility] [id number] [place] [address] TREATMENT/EQUIPMENT ORDERS: Adaptive Equipment Issued: None CERTIFICATION STATEMENT: Certification Statement: Certification Statement: Based on the above finding, I certify that this patient is confined to the home and needs intermittent fpc care, physical therapy and/or speech therapy, or continues to need occupational therapy.~ This patient is under my care, and I have initiated the establishment of the plan of care.~ This patient will be followed by myself or a community physician who will periodically review the plan of care. Home Meds Active Scripts Cyclobenzaprine Hcl (CYCLOBENZAPRINE HCL) 10 Mg Tablet, 10 MG PO PRN TID PRN for MUSCLE SPASMS for 10 Days, #30 TAB 0 Refills Prov:CHARLIE VALDEZ MD 05/14/21 Sennosides/Docusate Sodium (Stool Softener-Stimulant Lax) 1 Each Tablet, 2 TAB PO BID for Constipation for 30 Days, #120 TAB Prov:CHARLIE VALDEZ MD 05/13/21 Oxycodone/Apap 7.5-325 (PERCOCET 7.5-325 MG TABLET ) 1 Each Tablet, 1 TAB PO PRN Q4HRS PRN for PAIN for 6 Days, #30 TAB 0 Refills Prov:CHARLIE VALDEZ MD 05/13/21 Aspirin (ASPIRIN EC) 325 Mg Tablet., 1 TAB PO DAILY for BLOOD THINNER for 30 Days, #60 TAB 0 Refills Prov:CHARLIE VALDEZ MD 05/13/21 Reported Medications Metoprolol Succinate (METOPROLOL SUCCINATE ( XL )) 25 Mg Tab.er.24h, 25 MG PO HS for FOR HYPERTENSION, #30 TAB 0 Refills 04/23/21 Losartan Potassium (LOSARTAN POTASSIUM) 50 Mg Tablet, 50 MG PO HS for HYPERTENSION, TAB 04/23/21 Fluoxetine Hcl (FLUOXETINE HCL) 20 Mg Capsule, 20 MG PO DAILY for anxiety, CAP 04/23/21 Atorvastatin Calcium (ATORVASTATIN CALCIUM) 10 Mg Tablet, 10 MG PO HS for FOR CHOLESTEROL, #30 TAB 0 Refills 04/23/21 Tramadol Hcl (TRAMADOL HCL) 50 Mg Tablet, 50 MG PO TID PRN PRN for PAIN, TAB 0 Refills 06/13/18 Diclofenac Sodium (DICLOFENAC SODIUM) 75 Mg Tablet.dr, 1 TAB PO BID for joint pain , #60 TAB 1 Refill 06/13/18 Gabapentin (NEURONTIN ) 300 Mg Capsule, 300 MG PO TID for neuropathy, CAP 06/13/18 Hydroxychloroquine Sulfate (PLAQUENIL) 200 Mg Tablet, 200 MG PO BID for lupas, TAB 06/13/18 Nifedipine (PROCARDIA XL) 60 Mg Tab.er.24, 60 MG PO 11/26/13 CHARLIE VALDEZ MD May 13, 2021 12:13
[2021-05-13] MEDS: CYCLOBENZAPRINE 10 MG TABLET. PO PRN ×2 (12:37→18:29)
[2021-05-13 18:41] VITALS: BP 125/79
[2021-05-13] MEDS: METOPROLOL SUCC 24HR ER 25 MG TAB.ER.24H. PO SCH (21:00)
[2021-05-13] MEDS: LOSARTAN POTASSIUM 50 MG TABLET. PO SCH (21:00)
[2021-05-13] MEDS: PSYLLIUM HUSK (SUGAR FREE) 1 PKT PACKET PO SCH (21:36)
[2021-05-13] MEDS: ATORVASTATIN CALCIUM 10 MG TABLET. PO SCH (21:38)
[2021-05-14] MEDS: CYCLOBENZAPRINE 10 MG TABLET. PO PRN ×3 (00:49→13:00)
--- NOTE | 2021-05-14 05:40 | NUR ---
Slept better than last night, less pain med required also. Ambulates w/ stiff leg and "september".
[2021-05-14 06:17] VITALS: BP 113/75
[2021-05-14] MEDS: oxyCODONE/APAP 7.5/325 1 TAB TABLET PO PRN ×3 (06:36→15:04)
[2021-05-14] MEDS: GABAPENTIN 300 MG CAPSULE. PO SCH ×2 (08:27→15:04)
[2021-05-14] MEDS: FLUoxetine HCL 20 MG CAPSULE PO SCH (08:27)
[2021-05-14] MEDS: SENNOSIDES/DOCUSATE 8.6/50MG TABLET. PO SCH (08:28)
[2021-05-14] MEDS: DICLOFENAC SODIUM 25 MG TABLET.DR PO SCH (08:28)
--- NOTE | 2021-05-14 09:00 | NUR ---
Feeling much better today. Pain under control. Cont. monitor.
[2021-05-14] MEDS ORDERED: CYCL10TA19 PO (09:19)
--- NOTE | 2021-05-14 09:23 | PDOC ---
[facility] PROGRESS NOTE Date of Service DOS: DATE: 05/14/21 TIME: 09:21 Chief Complaint Chief Complaint Postop right total knee arthroscopy Osteoarthritis Asthma GERD Lupus Hyperlipidemia Hypertension Neuropathy Depression Anxiety History of Present Illness History of Present Illness Seen postop day 3 status post right TKA. Having bowel movements. Pain 4-10 has not required IV pain medication last 18 h. No shortness of breath or chest pain. 05/13: Seen POD #2 right TKA. Had a BM this morning. last IV dilaudid dose 0400, taking percocet 7.5mg 6 times daily, has been up to bathroom with OT. No SOB or CP. She discussed with ortho 325mg ASA and diclofenac BID at home, home health, outpatient f/u. She plans on staying with her mother. Labs stable. D/c held as h er pain was not under control. Of note, she does take tramadol at home, and it is not effectively controlling her pain. 6 day script for percocet sent to [facility]. 05/12/2021 Patient seen and examined Discussed with RN Chart reviewed Patient up in the chair still having a lot of pain We will try some Percocet 7.5 every 3 Vitals/I&O Vitals/I&O: Vital Signs Date Time Temp Pulse Resp B/P (MAP) Pulse Ox O2 Delivery O2 Flow Rate FiO2 05/14/21 07:15 Room Air 05/14/21 06:36 20 05/14/21 06:17 98.1 81 113/75 (88) 95 98.1 I & O 05/13/21 05/13/21 05/14/21 15:00 23:00 07:00 Intake Total 400 ml 240 ml Output Total 0 ml Balance 400 ml 240 ml 0 ml Physical Exam General: Alert, Oriented X3, Cooperative, No acute distress Abdomen: Normal bowel sounds, Soft, No tenderness, No hepatosplenomegaly, No masses Extremities: Other (Right knee in WILDER wrap) Skin: No rashes, No breakdown, No significant lesion Comment Review of Relevant I have reviewed the following items ramses (where applicable) has been applied. Medications: Current Medications Medications (Trade) Dose Ordered Sig/Belkis Route PRN Reason Start Time Stop Time Status Last Admin Dose Admin Cyclobenzaprine HCl (Flexeril) 10 mg PRN Q6HRS PRN PO MUSCLE SPASMS 05/13/21 12:15 05/14/21 06:36 Justifications for Admission Other Justification CHARLIE VALDEZ MD May 14, 2021 09:23
--- NOTE | 2021-05-14 09:27 | PDOC3 ---
Discharge Summary Visit Information Date of Admission: May 11, 2021 Date of Discharge: May 14, 2021 Admitting Diagnosis: Right knee osteoarthritis Final Diagnosis Right knee osteoarthritis Brief Hospital Course Allergies Allergies Coded Allergies Type Severity Reaction Last Updated Verified Sulfa (Sulfonamide Antibiotics) Allergy Intermediate 05/11/21 Yes sulfamethoxazole Allergy Intermediate 05/11/21 Yes trimethoprim Allergy Intermediate 05/11/21 Yes clonidine Adverse Reaction Intermediate Rash 05/11/21 Yes Vital Signs Vital Signs Date Time Temp Pulse Resp B/P (MAP) Pulse Ox O2 Delivery O2 Flow Rate FiO2 05/14/21 07:15 Room Air 05/14/21 06:36 20 05/14/21 06:17 98.1 81 113/75 (88) 95 98.1 Brief Hospital Course Ms Albert is a 50-year-old female w/ PMHx SLE and recently diagnosed severe osteoarthritis of right knee admitted for right total knee arthroplasty. Pain required multiple postoperative doses of Dilaudid and Compazine for nausea. Seen with family bedside able to bear weight on her right knee recently as well. Seen postoperatively bedside spirometer. Pre-op UA normal. No complaints other than 7/10 knee pain at this time. No CP or SOB. 05/12: Patient seen and examined. Patient up in the chair still having a lot of pain. We will try some Percocet 7.5 every 3 /: Seen POD #2 right TKA. Had a BM this morning. last IV dilaudid dose 0400, taking percocet 7.5mg 6 times daily, has been up to bathroom with OT. No SOB or CP. She discussed with ortho 325mg ASA and diclofenac BID at home, home health, outpatient f/u. She plans on staying with her mother. Labs stable. D/c held as her pain was not under control. Of note, she does take tramadol at home, and it is not effectively controlling her pain. 6 day script for percocet sent to [facility]. Seen postop day 3 status post right TKA. Having bowel movements. Pain 4-10 has not required IV pain medication last 18 h. No shortness of breath or chest pain. Consults: Orthopedic surgery, f/u in 2 weeks in office Problem list: Postop right total knee replacement for severe OA Osteoarthritis Asthma GERD Lupus Hyperlipidemia Hypertension Neuropathy Depression Anxiety Palpitations Greater than 30 min spent on discharge home with home health Discharge Information Condition at Discharge: Improved Follow Up: Weeks Disposition/Orders: D/C to Home w/ HH Scheduled Aspirin (Aspirin Ec) 325 Mg Tablet., 1 TAB PO DAILY for BLOOD THINNER for 30 Days, #60 Ref 0 Prescribed by: CHARLIE VALDEZ MD on 05/13/21942 Atorvastatin Calcium (Atorvastatin Calcium) 10 Mg Tablet, 10 MG PO HS for FOR CHOLESTEROL, #30 Ref 0 (Reported) Entered as Reported by: PHYLICIA TOBAR on 04/23/211750 Last Taken: Unknown Dose on 05/10/21 Last Action: Continued on 05/11/211402 by CHARLIE VALDEZ MD Diclofenac Sodium (Diclofenac Sodium) 75 Mg Tablet., 1 TAB PO BID for joint pain , #60 Ref 1 (Reported) Entered as Reported by: SANDY GARCIA on 06/13/18847 Last Taken: Unknown Dose on 05/01/21 Last Action: Converted on 05/13/21819 by ALYSSA FLOR Fluoxetine Hcl (Fluoxetine Hcl) 20 Mg Capsule, 20 MG PO DAILY for anxiety, (Reported) Entered as Reported by: PHYLICIA TOBAR on 04/23/211750 Last Taken: Unknown Dose on 05/11/21 Last Action: Continued on 05/11/211402 by CHARLIE VALDEZ MD Gabapentin (Neurontin ) 300 Mg Capsule, 300 MG PO TID for neuropathy, (Reported) Entered as Reported by: SANDY GARCIA on 06/13/18847 Last Taken: Unknown Dose on 05/11/21 Last Action: Continued on 05/11/211402 by CHARLIE VALDEZ MD Hydroxychloroquine Sulfate (Plaquenil) 200 Mg Tablet, 200 MG PO BID for lupas, (Reported) Entered as Reported by: SANDY GARCIA on 06/13/18847 Last Taken: Unknown Dose on 05/01/21 Last Action: Continued on 05/11/211402 by CHARLIE VALDEZ MD Losartan Potassium (Losartan Potassium) 50 Mg Tablet, 50 MG PO HS for HYPERTENSION, (Reported) Entered as Reported by: PHYLICIA TOBAR on 04/23/211750 Last Taken: Unknown Dose on 05/10/21 Last Action: Continued on 05/11/211402 by CHARLIE VALDEZ MD Metoprolol Succinate (Metoprolol Succinate ( Xl )) 25 Mg Tab.er.24h, 25 MG PO HS for FOR HYPERTENSION, #30 Ref 0 (Reported) Entered as Reported by: PHYLICIA TOBAR on 04/23/21 1751 Last Taken: Unknown Dose on 05/09/21 Last Action: Continued on 05/11/21 1403 by CHARLIE VALDEZ MD Sennosides/Docusate Sodium (Stool Softener-Stimulant Lax) 1 Each Tablet, 2 TAB PO BID for Constipation for 30 Days, #120 Prescribed by: CHARLIE VALDEZ MD on 05/13/21 0943 Scheduled PRN Cyclobenzaprine Hcl (Cyclobenzaprine Hcl) 10 Mg Tablet, 10 MG PO PRN TID PRN for MUSCLE SPASMS for 10 Days, #30 Ref 0 Prescribed by: CHARLIE VALDEZ MD on 05/14/21 0919 Oxycodone/Apap 7.5-325 (Percocet 7.5-325 Mg Tablet ) 1 Each Tablet, 1 TAB PO PRN Q4HRS PRN for PAIN for 6 Days, #30 Ref 0 Prescribed by: CHARLIE VALDEZ MD on 05/13/21 0945 Tramadol Hcl (Tramadol Hcl) 50 Mg Tablet, 50 MG PO TID PRN PRN for PAIN, Ref 0 ( Reported) Entered as Reported by: SANDY GARCIA on 06/13/18 0848 Last Taken: Unknown Dose on 05/10/21 Last Action: Continued on 05/13/21 0820 by ALYSSA FLOR Miscellaneous Medications Nifedipine (Procardia Xl) 60 Mg Tab.er.24, 60 MG PO, (Reported) Entered as Reported by: ANITA ROSALES on 11/26/13 1059 Last Taken: Unknown Dose on 05/11/21 Last Action: Converted on 05/11/21 140 by CHARLIE VALDEZ MD Justicifation of Admission Dx: Justifications for Admission: Justification of Admission Dx: Yes CHARLIE VALDEZ MD May 14, 2021 09:27
[2021-05-14] MEDS: HYDROXYCHLOROQUINE 200 MG TABLET PO SCH (10:35)
[2021-05-14 13:21] VITALS: BP 126/86
[2021-05-14] MEDS ORDERED: ASPIRIN ENTERIC COATED 325 MG TABLET.DR. PO SCH (15:00)
--- NOTE | 2021-05-14 16:15 | NUR ---
Discharge instructions given and prescription sent via electronic to pharmacy. Answered questions and concerns. Verbalized understanding. Pt discharged home accompanied by daughter. Escorted out by w/c.
== END 2021-05-14 16:15 | disposition home or self-care (01) ==
LOC: SURG 05:51 → 4 NORTH 09:26 → 4 SOUTHEST 05-12 07:37
PROVIDERS: ADMIT Internal Medicine; ATTEND Orthopaedic Surgery
DX: M17.11 Unilateral primary osteoarthritis, right knee (principal); I10 Essential (primary) hypertension; J45.909 Unspecified asthma, uncomplicated; K21.9 Gastro-esophageal reflux disease without esophagitis; F32.A Depression, unspecified; F41.9 Anxiety disorder, unspecified; E78.5 Hyperlipidemia, unspecified; E66.9 Obesity, unspecified; M19.90 Unspecified osteoarthritis, unspecified site; M32.9 Systemic lupus erythematosus, unspecified; G62.9 Polyneuropathy, unspecified; R00.2 Palpitations; Z90.710 Acquired absence of both cervix and uterus; Z90.49 Acquired absence of other specified parts of digestive tract; Z79.899 Other long term (current) drug therapy; Z98.890 Other specified postprocedural states; Z68.41 Body mass index [BMI] 40.0-44.9, adult; Z87.442 Personal history of urinary calculi
CPT/HCPCS: 27447; 36415; 73560; 80053; 85027; 86850; 86870; 86900; 86901; 96365; 96366; 96372; 96375; 96376; 97110; 97116; 97150; 97162; 97165; 97530; 97535; A4213; A4930; A6253; A6258; A6450; A6550; C1776; G0378; G0379; J0171; J0690; J0780; J1100; J1170; J1650; J1885; J2250; J2270; J2704; J2795; J3010; J3370; J3490; J2405

== ENCOUNTER → 2021-07-14 | Outpatient (CLI) | payer OTHER ==
[~2021-07-14] MED LIST changes: +ASPI325T11 PO; +OXYC1TAB19 PO; +SENN-209 PO; +VITA25006 PO
[2021-07-14 12:16] LABS: BASO % 1 % (0-3); EOS # 0.2 x10^3/uL (0.0-0.7); EOS % 4 % (0-3); HEMATOCRIT 38.2 % (36.0-47.0); LYMPH # 1.7 x10^3/uL (1.0-4.8); LYMPH % 29 % (24-48); MEAN CORPUSCULAR HEMOGLOBIN 31 pg (25-35); MEAN CORPUSCULAR HGB CONC 34 g/dL (31-37); MEAN CORPUSCULAR VOLUME 90 fL (79-100); MONO # 0.4 x10^3/uL (0.0-1.1); MONO % 6 % (0-9); NEUT # 3.5 x10^3/uL (1.8-7.7); NEUT % 61 % (31-73); PLATELET COUNT 356 x10^3/uL (140-400); RED BLOOD COUNT 4.26 x10^6/uL (3.50-5.40); RED CELL DISTRIBUTION WIDTH 13.5 % (11.5-14.5); WHITE BLOOD COUNT 5.8 x10^3/uL (4.0-11.0)
[2021-07-14 12:29] LABS: ALBUMIN 3.6 g/dL (3.4-5.0); CALCIUM 8.4 mg/dL (8.5-10.1); CREATININE 0.7 mg/dL (0.6-1.0); GFR 88.6; POTASSIUM 3.7 mmol/L (3.5-5.1)
--- NOTE | 2021-07-14 12:43 | RAD ---
EXAM: Chest, 2 views. HISTORY: Arthroplasty. COMPARISON: None. FINDINGS: 2 views of the chest are obtained. There is no infiltrate, pleural effusion or pneumothorax . The heart is normal in size. IMPRESSION: No acute pulmonary finding. Electronically signed by: Gerri Rose MD (07/14/2021 12:40 PM) [id number]
[2021-07-15 01:09] LABS: HEMOGLOBIN A1C 5.5 % (4.8-5.6)
== END ==
LOC: SURGPAT 11:29
PROVIDERS: ATTEND Orthopaedic Surgery
DX: Z01.818 Encounter for other preprocedural examination (principal); M17.12 Unilateral primary osteoarthritis, left knee
CPT/HCPCS: 36415; 71046; 80048; 82040; 82306; 83036; 85025; 85651; 87641

== ENCOUNTER 2021-08-03 05:50 | Observation (INO) | payer OTHER ==
[2021-07-14 11:58] VITALS: BP 122/76
[~2021-08-03] VITALS: Ht 157.5 cm; Wt 113.0 kg
[2021-08-03] VITALS (11 sets, daily range): BP systolic 115–142; BP diastolic 71–93
[2021-08-03] MEDS ORDERED: fentaNYL PF VIAL 100 MCG/2 ML VIAL IVP PRN ×3 (06:00→09:00)
[2021-08-03] MEDS ORDERED: TV=62ml MORPHINE 5 MG, KETOROLAC 30 MG, ROPIV, EPI INT ART ONE (06:00)
[2021-08-03] MEDS ORDERED: IV RINGERS,LACTATED 1000ML 1,000 ML IV SCH (06:00)
[2021-08-03] MEDS ORDERED: TRANEXAMIC ACID 1,000 MG in IV NS 50ML -- 1ST BAG INJ ONE (06:00)
[2021-08-03] MEDS ORDERED: ACETAMINOPHEN 500 MG TABLET PO PRN (06:00)
[2021-08-03] MEDS ORDERED: MELOXICAM 7.5 MG TABLET PO PRN (06:00)
[2021-08-03] MEDS ORDERED: GABAPENTIN 300 MG CAPSULE. PO PRN (06:00)
[2021-08-03] MEDS ORDERED: VANCOMYCIN 1 GM VIAL. ONE (06:58)
[2021-08-03] MEDS ORDERED: fentaNYL PF VIAL 100 MCG/2 ML VIAL ONE (07:01)
[2021-08-03] MEDS ORDERED: PROPOFOL 10 MG/ML (20ML) VIAL. IV ONE ×2 (07:01)
[2021-08-03] MEDS ORDERED: ROCURONIUM 50 MG/5 ML VIAL. ONE (07:02)
[2021-08-03] MEDS ORDERED: SUCCINYLCHOLINE 200 MG/10 ML VIAL. ONE (07:02)
[2021-08-03 07:10] LABS: PROTHROMBIN TIME PATIENT 13.6 SEC (11.7-14.0)
[2021-08-03] MEDS ORDERED: LIDOCAINE 2% TOPICAL JELLY 5GM TUBE. TP ONE (07:12)
[2021-08-03] MEDS ORDERED: ONDANSETRON PF 4 MG/2 ML VIAL. ONE (07:12)
[2021-08-03] MEDS ORDERED: DEXAMETHASONE SOD PHOS 4 MG/ML VIAL ONE (07:12)
[2021-08-03] MEDS ORDERED: SUGAMMADEX SODIUM 200 MG/2 ML VIAL. IVP ONE (07:45)
[2021-08-03] MEDS ORDERED: GLYCOPYRROLATE 1 MG/5 ML VIAL. ONE (07:53)
[2021-08-03] MEDS ORDERED: TRANEXAMIC ACID 1,000 MG in IV NS 50ML -- 2ND BAG INJ ONE (08:00)
[2021-08-03] MEDS ORDERED: HYDROmorphone 2 MG/ML INJ. ONE ×2 (08:05→09:37)
--- NOTE | 2021-08-03 08:54 | PDOC4 ---
OPERATIVE NOTE Date: Date: Aug 03, 2021 Pre-Op Diagnosis: Severe degenerative joint disease left knee Post-Op Diagnosis: Same Procedure Performed: Left total knee arthroplasty Surgeon: Titi Anesthesia Type: General Blood Loss: 50 cc Specimans Obtained: None Findings: Size 4 femur size 4 tibia 9 mm tibial insert polythirty 2 patella Complications: None INDIGO MAHER Jr. DO Aug 03, 2021 08:54
[2021-08-03] MEDS ORDERED: PROCHLORPERAZINE 5 MG TABLET. PO PRN (09:00)
[2021-08-03] MEDS ORDERED: ZOLPIDEM 5 MG TABLET. PO PRN (09:00)
[2021-08-03] MEDS ORDERED: CALCIUM CARBONATE 500 MG TAB.CHEW PO PRN (09:00)
[2021-08-03] MEDS ORDERED: DEXTROSE 50% 25 GM / 50ML DISP.SYRIN. IV PRN (09:00)
[2021-08-03] MEDS ORDERED: METOCLOPRAMIDE HCL 10 MG/2 ML VIAL. IVP PRN (09:00)
[2021-08-03] MEDS ORDERED: 0.9 % SODIUM CHLORIDE 10 ML DISP.SYRIN. IV PRN (09:00)
[2021-08-03] MEDS: IV NORMAL SALINE 1000ML BAG 1,000 ML IV SCH (09:00)
[2021-08-03] MEDS: SENNOSIDES/DOCUSATE 8.6/50MG TABLET. PO SCH (09:00)
[2021-08-03] MEDS ORDERED: diphenhydrAMINE 50 MG/ML VIAL IVP PRN (09:00)
--- NOTE | 2021-08-03 09:05 | OP ---
DATE OF SURGERY: 08/03/2021 PREOPERATIVE DIAGNOSIS: Severe degenerative joint disease, left knee. POSTOPERATIVE DIAGNOSIS: Severe degenerative joint disease, left knee. PROCEDURE: Left total knee arthroplasty. SURGEON: Akash Walls Jr, DO TIE UP WORKER: Dorian Nobles. ANESTHESIA: General. COMPLICATIONS: None. ESTIMATED BLOOD LOSS: 50 mL SIZING: Sizing for this is a size 4 femur, size 4 tibia, 9 mm tibial polyethylene insert and a 32 patella. DESCRIPTION OF PROCEDURE: The patient was taken to the operative suite and given a general anesthetic. The left lower extremity was prepped and draped in a sterile fashion. After exsanguination, tourniquet was inflated. Incision was made through skin and subcutaneous tissues anteriorly. This was taken down to the extensor mechanism. Superficial bleeding was coagulated. The medial parapatellar incision was then made. This was then taken through this area to skeletonize the proximal tibia distally to release tight contractures medially. The patella was then everted, measured and cut to the appropriate size 32 was most appropriate. The drill holes were made for that for the noncemented version of this prosthesis. Following this, the knee was taken into a flexed position and the drill was placed for the IM guide. The IM guide was placed in proper rotation and orientation of the distal femoral cut. This was held with pins and the distal cut was made. All this instrumentation was then removed. The sizing guide was placed on the distal femur. The drill was placed through the distal femur. This was marked in proper rotation for this left knee. Then, after this, a 4-in-1 guide was placed on the distal cut. This was held with pins and the anterior, posterior and the chamfer cuts were then subsequently made. Attention was then directed to the tibia. The remnants of the medial and lateral menisci were removed as well as the ACL. The PCL remained intact and after the external tibial guide was placed in appropriate position and orientation, the proximal tibia was then cut. Sizing revealed this to be 9 mm was very stable in extension as well as flexion. This was also balanced appropriately with minimal soft tissue releases after this. This was marked for rotation. The keel was then placed to the appropriate depth through the tibia and subsequently this portion was removed and then the drill holes were made through this for the tibial component. The femur was drilled with the femoral drill as well. After all trials were removed, this was copiously irrigated again and suctioned dry. Bovie was used throughout the knee. Following this, the tibia was impacted and noted to be very secure and stable. Same was noted on the femur. The 9 mm polyethylene was placed and the tibial component noted to be stable and the patella was clamped. All components were very stable. There was proper tracking of the patellofemoral joint throughout the arc of motion. The tourniquet was then deflated. No excessive bleeding was noted after coagulation of tissues. The medial parapatellar incision was then closed in a running fashion using a Stratafix. Following this, the superficial tissue and skin was reapproximated. It should be noted that there was copious irrigation prior to closure with iodine and then this was thoroughly irrigated out and then the capsule was injected with appropriate amount of local and then sterile dressing was subsequently applied after closure after the skin was reapproximated. The patient was then taken from the operative bed to the postoperative bed, taken to the PACU in stable condition. KHRIS DR: Leti TID: [id number]
[2021-08-03] MEDS ORDERED: MORPHINE SULFATE 2 MG/ML INJ. ONE (09:25)
[2021-08-03] MEDS: MORPHINE SULFATE 2 MG/ML INJ. IVP PRN ×3 (09:28→23:28)
--- NOTE | 2021-08-03 09:28 | RAD ---
Two-view left knee dated 08/03/2021. Comparison made to 06/24/2021. INDICATION: Postop knee arthroplasty. FINDINGS: 2 views left knee show interval total knee arthroplasty. Femoral and tibial components are intact. No periprosthetic fracture or malalignment. There is soft tissue swelling and soft tissue gas. Postsurg ical changes of the patella. IMPRESSION: Status post left knee arthroplasty. Electronically signed by: Pilo Boyle MD (08/03/2021 9:26 AM) [id number]
[2021-08-03] MEDS: HYDROmorphone 2 MG/ML INJ. IVP PRN ×2 (09:40→10:07)
[2021-08-03] MEDS ORDERED: PROCHLORPERAZINE 10 MG/2 ML VIAL. ONE (09:46)
[2021-08-03] MEDS: PROCHLORPERAZINE 10 MG/2 ML VIAL. IVP PRN ×2 (09:50→10:07)
--- NOTE | 2021-08-03 10:55 | NUR ---
Arrived to unit by bed from PACU. Awakens easily. Moaning intermittently. Left leg elevated on pillow and ice pack. Dressing on left knee is d/i with AASHISH box. Pedal pulses +, warm touch and able to wiggle toes easily. IVF's intact and infusing. O2 at 3l per n/c. Oriented to room and controls. Side rails up x's 2 with call light in reach. Mother and daughter at bedside. Cont. monitor.
--- NOTE | 2021-08-03 11:12 | HP ---
DATE OF SERVICE: 08/03/2021 ADMIT DATE: 08/03/2021 PREOPERATIVE HISTORY AND PHYSICAL HISTORY OF PRESENT ILLNESS: She is here today with complaints of significant left knee pain. She has already undergone a right total knee arthroplasty and has done very well with her physical therapy. She is ambulating without much difficulty as far as that knee is concerned. However, unfortunately, she continues to have quite significant and severe left knee pain. The right knee surgery was done in May and she is anticipating getting this done as soon as possible, she can get back to activities of daily living and start working out. This is not unstable in most senses, but sometimes it appears to have some instability, but pain is not controlled with oral anti-inflammatories, injections, etc. REVIEW OF SYSTEMS: Unremarkable other than the current musculoskeletal complaints. MEDICAL HISTORY: Remarkable for lupus, hypertension and angina. PAST SURGICAL HISTORY: Hysterectomy, right total knee replacement, cholecystectomy, removal of renal stones. HOSPITALIZATIONS: As above. FAMILY HISTORY: Hypothyroidism, diabetes, congestive heart failure, coronary artery disease. SOCIAL HISTORY: The patient has never been a tobacco user. Currently no alcohol use. She does have 2 children as well as her as far as her home activities. MEDICATIONS: Plaquenil, calcium, Procardia-XL, metoprolol, diclofenac, Imuran, magnesium oxide, tramadol, Flexeril. MEDICATION ALLERGIES: SULFA AND CATAPRES PATCH. PHYSICAL EXAMINATION: GENERAL: Today she is alert and oriented x 3. HEART: Regular rate and rhythm. LUNGS: Clear to auscultation. ABDOMINAL: Region is soft. No tenderness with palpation. Normal abdominal sounds. EXTREMITIES: Examination of the left knee reveals there to be mild to moderate knee joint effusion, pain with palpation of the medial and lateral compartments with positive Apley's test to the medial and lateral compartments as well. She has full extension and flexion is only up to 110 today, tenderness anteriorly throughout the arc of motion. Distal neurovascular status appears to be fully intact. IMPRESSION: Severe degenerative joint disease, left knee to his current medical history as noted above. PLAN: At this point, we will go ahead and proceed with a left total knee arthroplasty. She has been medically cleared and is ready to undergo this procedure. All questions were answered to her satisfaction and her satisfaction today. YANG/EUSEBIA/THOM DR: Leti TID: [id number]
--- NOTE | 2021-08-03 11:30 | NUR ---
Ambulated to bathroom with steady gait with walker and gait belt. Voided and return to bed. Cont. monitor.
[2021-08-03] MEDS: ONDANSETRON ODT 4 MG TAB.RAPDIS. PO SCH ×2 (12:00→22:48)
[2021-08-03] MEDS ORDERED: KETAMINE HCL IN NACL, ISO-OSM 50 MG/5 ML SYRINGE ONE (13:46)
[2021-08-03] MEDS: oxyCODONE IR 5 MG TABLET PO PRN ×2 (14:47→20:52)
[2021-08-03] MEDS: ONDANSETRON PF 4 MG/2 ML VIAL. IVP SCH ×2 (15:02→17:07)
[2021-08-03] MEDS: MULTIVITAMIN with MINERAL TABLET. PO SCH (15:02)
[2021-08-03] MEDS: CYCLOBENZAPRINE 10 MG TABLET. PO PRN (17:06)
[2021-08-03] MEDS: ATORVASTATIN CALCIUM 10 MG TABLET. PO SCH (20:52)
[2021-08-03] MEDS: HYDROXYCHLOROQUINE 200 MG TABLET PO SCH (20:52)
[2021-08-03] MEDS: GABAPENTIN 300 MG CAPSULE. PO SCH (20:53)
[2021-08-03] MEDS: DICLOFENAC SODIUM 25 MG TABLET.DR PO SCH (20:53)
[2021-08-03] MEDS: LOSARTAN POTASSIUM 50 MG TABLET. PO SCH (20:56)
[2021-08-03] MEDS: METOPROLOL SUCC 24HR ER 25 MG TAB.ER.24H. PO SCH (20:56)
[2021-08-04] MEDS: oxyCODONE IR 5 MG TABLET PO PRN (01:17)
[2021-08-04] MEDS: CYCLOBENZAPRINE 10 MG TABLET. PO PRN ×3 (01:17→21:08)
[2021-08-04 03:04] VITALS: BP 144/97
[2021-08-04] MEDS: MORPHINE SULFATE 2 MG/ML INJ. IVP PRN (04:26)
[2021-08-04] MEDS: ONDANSETRON PF 4 MG/2 ML VIAL. IVP SCH ×2 (05:46)
[2021-08-04] MEDS: ONDANSETRON ODT 4 MG TAB.RAPDIS. PO SCH ×2 (05:46)
[2021-08-04] MEDS ORDERED: GABAPENTIN 100 MG CAPSULE. PO SCH (06:00)
[2021-08-04] MEDS ORDERED: MAGNESIUM HYDROXIDE 2,400 MG/30 ML ORAL.SUSP. PO PRN (06:00)
[2021-08-04 07:15] VITALS: BP 126/86
[2021-08-04 07:58] LABS: HEMATOCRIT 29.6 % (36.0-47.0)
--- NOTE | 2021-08-04 08:57 | PDOC ---
Provider Note Date of Service: DATE: 08/04/21 TIME: 08:57 Provider Note dictated Justifications for Admission Other Justification MAN FLOWERS MD Aug 04, 2021 08:57
[2021-08-04] MEDS: ACETAMINOPHEN 500 MG TABLET PO SCH ×4 (09:00→21:08)
[2021-08-04] MEDS: IV NORMAL SALINE 1000ML BAG 1,000 ML IV SCH (09:00)
[2021-08-04] MEDS ORDERED: VITAMIN D3 PO SCH (09:00)
[2021-08-04] MEDS ORDERED: FOLIC ACID PO SCH (09:00)
[2021-08-04] MEDS ORDERED: ASPIRIN ENTERIC COATED 325 MG TABLET.DR. PO SCH (09:00)
[2021-08-04] MEDS: FLUoxetine HCL 20 MG CAPSULE PO SCH (09:11)
[2021-08-04] MEDS: MULTIVITAMIN with MINERAL TABLET. PO SCH (09:11)
[2021-08-04] MEDS: oxyCODONE/APAP 7.5/325 1 TAB TABLET PO PRN ×4 (09:11→21:09)
[2021-08-04] MEDS: GABAPENTIN 300 MG CAPSULE. PO SCH ×3 (09:12→21:07)
[2021-08-04] MEDS: SENNOSIDES/DOCUSATE 8.6/50MG TABLET. PO SCH (09:12)
[2021-08-04] MEDS: DICLOFENAC SODIUM 25 MG TABLET.DR PO SCH ×2 (09:12→21:08)
[2021-08-04] MEDS: HYDROXYCHLOROQUINE 200 MG TABLET PO SCH ×2 (09:12→21:09)
[2021-08-04 11:09] VITALS: BP 130/84
--- NOTE | 2021-08-04 11:16 | HP ---
DATE OF SERVICE: 08/04/2021 ADMIT DATE: 08/03/2021 CHIEF COMPLAINT: Knee replacement. HISTORY OF PRESENT ILLNESS: A 50-year-old white female, patient of Dr. Zambrano. She is known to our practice for hypertension and had a knee replacement on the left side done by Dr. Walls yesterday. She has no recent medical problems. PAST HISTORY: Medications listed per the chart. No known allergies. She has had a right knee replacement before. No other serious medical problems. SOCIAL HISTORY: She is a nurse at [employer]. Nonsmoker, nondrinker, to my knowledge. FAMILY HISTORY: Unremarkable. REVIEW OF SYSTEMS: Unremarkable. OBJECTIVE: ENT: All within normal limits. NECK: No masses, nodes or bruits. LUNGS: Clear. CARDIOVASCULAR: Regular rate. No irregular beat or murmur. ABDOMEN: Benign, soft, nontender. EXTREMITIES: Left foot has been wrapped in a surgical wrap, dressing in place. Right leg unremarkable. Distal pulses are good. NEUROLOGIC: Physiologic. ASSESSMENT: Status post left knee replacement. Mental status appears to be stable. PLAN: Continue current care. We will follow. YANIRA/CARMEN/THOM DR: YANIRA/rosales TID: [id number]
[2021-08-04] MEDS ORDERED: ONDANSETRON PF 4 MG/2 ML VIAL. IVP PRN (12:00)
[2021-08-04] MEDS ORDERED: ONDANSETRON ODT 4 MG TAB.RAPDIS. PO PRN (12:00)
--- NOTE | 2021-08-04 13:47 | NUR ---
Dr Walls came by to see the patient this afternoon and stated that he had spoken to Dr Kovacs in regards to the patients left foot/ankle. He didnt go into detail with this nurse on the specifics but stated he talked to Dr Kovacs about seeing the patient while she is here and her current medical status. Consult placed and patient aware. Will follow up.
[2021-08-04 15:10] VITALS: BP 126/81
[2021-08-04] MEDS ORDERED: BISACODYL 10 MG SUPP.RECT. PR PRN (16:00)
[2021-08-04 19:00] VITALS: BP 109/78
[2021-08-04] MEDS: ASPIRIN ENTERIC COATED 325 MG TABLET.DR. PO SCH (21:07)
[2021-08-04] MEDS: LOSARTAN POTASSIUM 50 MG TABLET. PO SCH (21:08)
[2021-08-04] MEDS: METOPROLOL SUCC 24HR ER 25 MG TAB.ER.24H. PO SCH (21:09)
[2021-08-04] MEDS: ATORVASTATIN CALCIUM 10 MG TABLET. PO SCH (21:09)
[2021-08-04 23:00] VITALS: BP 112/67
--- NOTE | 2021-08-05 00:28 | PN ---
DATE: 08/04/2021 She is postoperative day #1 for a left total knee replacement. She is doing very well today. Pain is very much under control since her nurse changed her medication to 7.5 mg versus 5 mg. She did a great job changing her over to that to keep that under better control today. She has no signs or symptoms of infection. No signs or symptoms of DVT. She has actually been to physical therapy to do a little ambulation. She is working on that as well. We will follow her very closely to see how she is progressing with physical therapy, make sure pain is still under control at this point and I will see her tomorrow to make sure that she continues to do well. YANG/VIRGIE/PEYTON DR: Leti TID: [id number]
[2021-08-05] MEDS: oxyCODONE/APAP 7.5/325 1 TAB TABLET PO PRN ×4 (01:13→16:14)
[2021-08-05] MEDS: ACETAMINOPHEN 500 MG TABLET PO SCH ×2 (03:00→09:00)
[2021-08-05] MEDS: CYCLOBENZAPRINE 10 MG TABLET. PO PRN ×2 (06:06→13:48)
[2021-08-05 07:00] VITALS: BP 90/58
[2021-08-05 07:03] LABS: HEMATOCRIT 27.5 % (36.0-47.0); HEMOGLOBIN 9.1 g/dL (12.0-15.5)
[2021-08-05] MEDS: SENNOSIDES/DOCUSATE 8.6/50MG TABLET. PO SCH (08:28)
[2021-08-05] MEDS: FLUoxetine HCL 20 MG CAPSULE PO SCH (08:28)
[2021-08-05] MEDS: DICLOFENAC SODIUM 25 MG TABLET.DR PO SCH (08:28)
[2021-08-05] MEDS: GABAPENTIN 300 MG CAPSULE. PO SCH ×2 (08:28→13:48)
[2021-08-05] MEDS: MULTIVITAMIN with MINERAL TABLET. PO SCH (08:28)
[2021-08-05] MEDS: HYDROXYCHLOROQUINE 200 MG TABLET PO SCH (08:28)
[2021-08-05] MEDS: ASPIRIN ENTERIC COATED 325 MG TABLET.DR. PO SCH (08:29)
--- NOTE | 2021-08-05 08:36 | SNU/HH DC ---
DISCHARGE WITH HOME HEALTH DISCHARGE INFORMATION: Condition on Discharge: Stable CODE STATUS: Code Status: Full HOME HEALTH: Face to Face: I certify this patient is under my care and that I, or a nurse practitioner or physician's periodicals library assistant working with me, had a face to face encounter that meets the physician face to face encounter requirements with this patient on []. Medical Complications: MAIDA RN For Eval/Treatment: Yes Pt Meets Homebound Status: Poor coordination w/ amb. POST DISCHARGE ORDERS: Activity Instructions for Disc: Activity as tolerated Weight Bearing Status after Di: Full weight bearing Bathing Instructions: Shower-keep dressing dry, No Tub Bath until see DIET AFTER DISCHARGE: Cardiac Wound/Incision Care: Ice to area for comfort, Do not change dressing CHECKS AFTER DISCHARGE: Checks after discharge: Check blood press - daily, Weigh Yourself Daily TREATMENT/EQUIPMENT ORDERS: Adaptive Equipment Issued: None CERTIFICATION STATEMENT: Certification Statement: Certification Statement: Based on the above finding, I certify that this patient is confined to the home and needs intermittent penitentiary care, physical therapy and/or speech therapy, or continues to need occupational therapy.~ This patient is under my care, and I have initiated the establishment of the plan of care.~ This patient will be followed by myself or a community physician who will periodically review the plan of care. Home Meds Active Scripts Aspirin (ASPIRIN EC) 325 Mg Tablet., 1 TAB PO DAILY for BLOOD THINNER for 30 Days, #60 TAB 0 Refills Prov:CHARLIE VALDEZ MD 05/13/21 Reported Medications Vitamin D3/Folic Acid (Noxifol-D3 2,500 Unit-1 mg Tab) 2,500 Unit Tablet, 1 TAB PO DAILY for N for 30 Days, #30 TAB 0 Refills 07/14/21 Metoprolol Succinate (METOPROLOL SUCCINATE ( XL )) 25 Mg Tab.er.24h, 25 MG PO HS for FOR HYPERTENSION, #30 TAB 0 Refills 04/23/21 Losartan Potassium (LOSARTAN POTASSIUM) 50 Mg Tablet, 50 MG PO HS for HYPERTENSION, TAB 04/23/21 Fluoxetine Hcl (FLUOXETINE HCL) 20 Mg Capsule, 20 MG PO DAILY for anxiety, CAP 04/23/21 Atorvastatin Calcium (ATORVASTATIN CALCIUM) 10 Mg Tablet, 10 MG PO HS for FOR CHOLESTEROL, #30 TAB 0 Refills 04/23/21 Tramadol Hcl (TRAMADOL HCL) 50 Mg Tablet, 50 MG PO TID PRN PRN for PAIN, TAB 0 Refills 06/13/18 Diclofenac Sodium (DICLOFENAC SODIUM) 75 Mg Tablet.dr, 1 TAB PO BID for joint pain , #60 TAB 1 Refill 06/13/18 Gabapentin (NEURONTIN ) 300 Mg Capsule, 300 MG PO TID for neuropathy, CAP 06/13/18 Hydroxychloroquine Sulfate (PLAQUENIL) 200 Mg Tablet, 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
--- NOTE | 2021-08-05 08:49 | PDOC ---
Provider Note Date of Service: DATE: 08/05/21 TIME: 08:48 Provider Note [id number] Justifications for Admission Other Justification MAN FLOWERS MD Aug 05, 2021 08:49
[2021-08-05] MEDS: IV NORMAL SALINE 1000ML BAG 1,000 ML IV SCH (09:00)
[2021-08-05] MEDS ORDERED: ACETAMINOPHEN 500 MG TABLET PO PRN (10:30)
[2021-08-05 11:00] VITALS: BP 109/67
--- NOTE | 2021-08-05 17:10 | NUR ---
Discharge instructions given. Answered questions and concerns. Verbalized understanding. Pt escorted out by w/c accompanied by friend.
--- NOTE | 2021-08-05 20:02 | DS ---
DATE OF DISCHARGE: 08/05/2021 HOSPITAL SUMMARY: A 50-year-old white female admitted after left knee replacement per Dr. Walls. Laboratory studies showed normal coag profile and hemoglobin was 10 prior to surgery and 9.1 after. X-ray showed normal postoperative pattern. She was cared for per the direction of Dr. Walls with IV and oral pain meds and can be discharged later today if he is comfortable with her progress in physical therapy. FINAL DIAGNOSES: Status post total knee replacement, left knee. OPERATIONS AND PROCEDURES: Left knee replacement. COMPLICATIONS: None. CONSULTATION: Dr. Walls. DISPOSITION: All meds listed per Dr. Walls's suggestion regarding anticoagulants and pain meds. Home meds will continue the same. Office followup with Dr. Walls as he desires. We will see her as needed for her other medical problems. PRINCESS/BYRON DR: YANIRA/rosales TID: [id number]
== END 2021-08-05 17:10 | disposition home health service (06) ==
LOC: SURG 05:50 → 4 NORTH 09:28 → INTOOBSV 09:28
PROVIDERS: ADMIT Orthopaedic Surgery; ATTEND Orthopaedic Surgery
DX: M17.12 Unilateral primary osteoarthritis, left knee (principal); I11.0 Hypertensive heart disease with heart failure; I50.9 Heart failure, unspecified; I20.9 Angina pectoris, unspecified; M32.9 Systemic lupus erythematosus, unspecified; Z90.710 Acquired absence of both cervix and uterus; Z87.442 Personal history of urinary calculi; Z96.651 Presence of right artificial knee joint; Z90.49 Acquired absence of other specified parts of digestive tract
CPT/HCPCS: 27447; 36415; 73560; 85014; 85018; 85610; 85730; 86850; 86870; 86900; 86901; 88304; 88311; 96365; 96366; 96375; 96376; 97110; 97116; 97150; 97162; 97165; 97530; 97535; A4213; A4930; A6253; A6258; A6450; A6550; C1776; G0378; J0171; J0330; J0690; J0780; J1100; J1170; J1885; J2270; J2405; J2704; J2795; J3010; J3370; J3490; G0379

== ENCOUNTER → 2021-08-19 | Outpatient (CLI) | payer OTHER ==
[2021-08-05 11:00] VITALS: BP 109/67
--- NOTE | 2021-08-19 14:49 | RAD ---
INDICATION: Left knee replacement with leg pain COMPARISON: December 2017 TECHNIQUE: Grayscale, color and doppler ultrasound images were obtained of the left lower extremity v enous vasculature. LEFT: No thrombus identified in the common femoral vein, femoral vein, popliteal vein or visualized calf ve ins. IMPRESSION: * No thrombus identified in deep venous system of the left lower extremity. Electronically signed by: Alphonse Manzo MD (08/19/2021 2:46 PM) [id number]
== END ==
LOC: US 14:06
PROVIDERS: ATTEND Orthopaedic Surgery
DX: M79.605 Pain in left leg (principal); M79.89 Other specified soft tissue disorders; Z96.652 Presence of left artificial knee joint
CPT/HCPCS: 93971

== ENCOUNTER → 2021-09-21 | Outpatient (CLI) | payer OTHER | LOC: LAB 11:19 | PROVIDERS: ATTEND Podiatrist | DX: M21.42 Flat foot [pes planus] (acquired), left foot (principal); M17.11 Unilateral primary osteoarthritis, right knee | CPT/HCPCS: 36415; 82306; 82310; 82652 ==

== ENCOUNTER 2021-10-21 06:03 | Day surgery (SDC) | payer OTHER ==
[~2021-10-21] VITALS: Ht 157.5 cm; Wt 106.8 kg
[~2021-10-21 06:03] MED LIST changes: +IV RINGERS,LACTATED 1000ML 1,000 ML IV SCH; +MORPHINE SULFATE 2 MG/ML INJ. IVP PRN; +fentaNYL PF VIAL 100 MCG/2 ML VIAL IVP PRN
[2021-10-21 06:35] VITALS: BP 122/82
[2021-10-21] MEDS ORDERED: PROPOFOL 10 MG/ML (20ML) VIAL. IV ONE (06:53)
[2021-10-21] MEDS ORDERED: ONDANSETRON PF 4 MG/2 ML VIAL. ONE (06:53)
[2021-10-21] MEDS ORDERED: fentaNYL PF VIAL 100 MCG/2 ML VIAL ONE (06:53)
[2021-10-21] MEDS ORDERED: DEXAMETHASONE SOD PHOS 4 MG/ML VIAL ONE ×2 (06:53→12:16)
[2021-10-21] MEDS ORDERED: SEVOFLURANE > 120 MINUTES. IH ONE (06:53)
[2021-10-21] MEDS ORDERED: LIDOCAINE 2% PF 5 ML VIAL. ONE (06:53)
[2021-10-21] MEDS ORDERED: BUPIVACAINE MPF 0.25% 30 ML VIAL. ONE (07:06)
[2021-10-21] MEDS ORDERED: MIDAZOLAM HCL/PF 2 MG/2 ML VIAL. ONE (07:16)
[2021-10-21] MEDS ORDERED: FAMOTIDINE 20 MG/2 ML VIAL ONE (07:35)
[2021-10-21] MEDS ORDERED: ePHEDrine PF IN SALINE 50 MG/10 ML SYRINGE. IV ONE (08:01)
[2021-10-21] MEDS ORDERED: oxyCODONE/APAP 5/325 1 TAB TABLET PO ONE (12:15)
[2021-10-21] MEDS ORDERED: ROPIVacaine 0.5% PF 20 ML VIAL. ONE (12:15)
[2021-10-21] MEDS ORDERED: ACETAMINOPHEN 325 MG TABLET. PO ONE (12:15)
[2021-10-21] MEDS ORDERED: GABAPENTIN 100 MG CAPSULE. PO ONE (12:15)
--- NOTE | 2021-10-21 12:18 | PDOC4 ---
OPERATIVE NOTE Date: Date: Oct 21, 2021 JIGAR GAGNON DPM Oct 21, 2021 12:18
[2021-10-21] MEDS ORDERED: PROCHLORPERAZINE 10 MG/2 ML VIAL. ONE (13:03)
[2021-10-21] MEDS ORDERED: HYDROmorphone 2 MG/ML INJ. ONE (13:04)
[2021-10-21] MEDS: PROCHLORPERAZINE 10 MG/2 ML VIAL. IVP PRN ×2 (13:06→13:25)
[2021-10-21] MEDS: HYDROmorphone 2 MG/ML INJ. IVP PRN ×2 (13:08→13:25)
[2021-10-21 14:10] VITALS: BP 130/73
--- NOTE | 2021-10-21 15:39 | RAD ---
EXAM: XR FOOT_LEFT 3 VIEWS, XR OS CALCIS_LT 2+ VIEWS, XR EXAM OF ANKLE_LEFT 3V 10/21/2021 12:20 PM CLINICAL INDICATION: PACU, postoperative left foot COMPARISON: Left foot radiograph 08/21/2021 TECHNIQUE: AP, oblique, and lateral views of the left ankle, AP, oblique, lateral views of the left foot, and axial view of the calcaneus. FINDINGS: Left ankle: Cast material obscures bony detail. There are surgical changes of the subtalar and talona vicular arthrodesis. Possible fracture of one of the proximal screws in the talonavicular plate near the base of the screw (see saved sorto images). There is an orthopedic staple in the medial cuneiform. Hardware appears intact. There is an os trigonum. Tibiotalar alignment is normal. No obvious fracture . Left foot: Cast material obscures bony detail. Surgical changes of subtalar and talonavicular arthrod esis with 2 partially threaded screws traversing the subtalar joint and a plate and screw fixation de vice traversing the talonavicular joint. Possible fracture of one of the proximal screws in the gomez avicular plate as above. There is either a fracture or osteotomy of the medial cuneiform with a ortho pedic staple across the defect. No evidence of hardware complication. Calcaneus: There are 2 partially threaded screws in the calcaneus. The screws appear intact. Addition al hardware in the hindfoot and midfoot as above. No acute fracture. IMPRESSION: 1. Surgical changes of the subtalar and talonavicular arthrodesis. There is a possible fracture of on e of the proximal screws in the talonavicular plate. 2. Osteotomy or fracture of the medial cuneiform with orthopedic staple in place. Electronically signed by: Taylor Romo MD (10/21/2021 3:37 PM) [id number]
--- NOTE | 2021-10-21 16:05 | PDOC4 ---
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 Overall the bone quality was adequate. After subtalar fusion, the forefoot varus deformity was unmasked and correction was not adequately addressed with TN joint fusion. Therefore cotton osteotomy was performed to loaded the medial column which was consented preoperatively. Complications: None Operative Note: Under mild sedation, patient was brought into the operating room and placed on the operative table in a supine position. A formal timeout was performed to confirm patient's identity, procedure and procedure site. Following IV prophylactic antibiotics and general anesthesia induction, a well-padded left thigh tourniquet was placed. The left lower extremity was then scrubbed, prepped and draped using aseptic techniques. Intraoperative x-ray was utilized to provisionally ramses and plan for the medial incision by marking out the subtalar facet, TNJ, medial midline distal tibia. Then the left lower extremity was then exsanguinated and the pressure cuff was inflated to 250 millimercury. Then the incision was directed to the left posterior distal Achilles where three x 3mm stab incisions were carried out at 2 cm, 5 cm and 8 cm proximal from the Achilles insertion site. Then using a Edwards blade, staggered and saige-tenotomy was performed at the medial, lateral and medial aspect of the Achilles tendon sequentially. Then passive ankle joint dorsiflexion was noted at 0 degree neutral. The surgical sites were irrigated with copious saline solution and closed with 4-0 nylon. A linear incision was carried out approximately 0.5 cm distal from the distal medial malleolus extending from the posterior subtalar facet anteriorly to the navicular cuneiform joint. The incision was carried deep with a combination of sharp and blunt dissection with care to protect and retract all the neurovascular bundles. At this time, superficial deltoid ligament and deep fascia was encountered and then incised along the PT tendon sheath to allow adequate joint visualization and also avoid neurovascular bundle violation posterior and plantar to the FDL. At this time, we noted that the PT tendon was severely degenerated and fibrosed to the surrounding soft tissue. Subtalar joint inversion/eversion stress test did not remark any gliding of the PT tendon. The degenerated PT tendon was excised as it was not salvageable and was in the visual field of subtalar joint preparation. Then the FDL was identified just plantar to the PT tendon and it was mobilized plantarly to gain access to the subtalar joint. The subtalar joint was established and the joint capsule was incised including the deep deltoid ligament. The TCL was incised with a rongeur and the joint access was gained with a smooth lamina eeo officer. Intraoperative findings was insignificant for erosive changes across the subtalar articular surface. The articular cartilage across the posterior, middle and anterior subtalar joint was denuded with a combination of a rongeur, an osteotome, a curette and a bur. Copious saline solution was used to irrigate the fusion site. Subchondral fenestration was achieved with a combination of 2 mm drill bit and a small osteotome. Paprika sign was appreciated across the fusion site. Then the attention was directed to the TNJ where a medial dorsal linear capsulotomy was achieved with a #15 blade, just superior to the PT tendon course. The periosteum was elevated dorsally across the TNJ with a bone elevator and care to protect and retract all the dorsal lateral neurovascular bundles. A coaxial capsulotomy across the TNJ was carried out and the dorsal and plantar capsular ligament was incised to gain visualization across the entire articular surface. Again, smooth lamina eeo officer was engaged to maintain the joint visualization. Articular cartilage was denuded with a combination of a rongeur, an osteotome, curette and a bur. Subchondral fenestration was achieved with a combination of 2 mm drill bit and a small osteotome. Copious s francisca solution was used to irrigate the fusion site. Paprika sign was appreciated across the fusion site. Then the tension was directed to the distal medial malleolus at the midline approximately 5 cm proximal to the ankle joint line. A 1.5 millimeter linear skin incision was made and the incision was carried deep to the periosteum layer with a [place]. Following the manufacture protocol, a 6 mm bone harvester/trephine was used under the guidance of the intraoperative x-ray. The harvester was introduced to the medial surface of the malleolus advanced and laterally to the cancellous canal without penetrating or violating the lateral cortex or posterior cortex. Approximately 5 cc of cancellous bone was harvested from the distal medial malleolus. The distal medial malleoli were harvest site was backfilled with hydroxy palpitate , tricalcium phosphate, bioactive glass plug. then the site of harvest station was irrigated with saline and then closed in layers with 4-0 Monocryl and 4-0 nylon. The subtalar joint was reduced and a temporarily fixed with 2 guidepins for 7 mm screws from distal posterior calcaneus to dorsal talar body/neck margin, and anterior talar neck/ head intraoperative x-ray remarked adequate synagogue of the calcaneal height, apposition across the subtalar joint, satisfactory hardware position within the calcaneal body without violating the tarsal tunnel. The posterior distal calcaneal skin was incised at the guidewire sites and carried to deep bluntly to the periosteum layer. Using standard AO technique, two 7 mm partially-threaded, cannulated screws were placed over the guidepins to compress and stabilize the subtalar joint. Adequate hardware position, length were verified on x-ray. Calcaneal axial view also remarked hardware trajectory within the calcaneal body. At this time, 2-hour and 20-minute tourniquet ramses was met and tourniquet was deflated. Adequate digital perfusion was noted. Hemostasis was achieved with gauze, compression. While the tourniquet was deflated, the TNJ was reduced using with windlass maneuver and then temporarily fixated with K wires. Proper x-ray remarked adequate to TNJ apposition, restored Meary's angle and Billy's angle. However, the forefoot varus deformity was unmasked. Therefore cotton osteotom was indicated after TN joint fusion. Then a [id number] 5 hole plate was placed over the dorsal medial aspect of the TNJ. Using standard AO technique, a combination of locking and nonlocking 3.5 millimeter screws were used to compress and fixate the TNJ with an intraplate compression slot. Intraoperative x-ray remarked adequate hardware position, apposition across the TNJ without violating the surrounding particular surfaces. Then approximately 5 cc of cancellous bone along with 2.5 cc of Vivigen autograft was impacted across the fusion site to encourage adequate union. Then the deltoid and deep tissue capsule was repaired with #2 FiberWire. The decision was made against transferring the FDL for PT tendon rupture as the literature has documented 90% offloading across the PT tendon with TNJ fusion. The surgical site was irrigated with copious saline. Then all the surgical sites were closed in layers with 3-0 Vicryl, 4 Monocryl, 3-0 nylon. After 40 mins, the tourniquet was reinflated after left lower extremity exsanguination and pressure was set at 250 mmHg. Then the attention was directed to the dorsal first cuneiform. A linear in cision was made medial to the EHL overlying the first cuneiform. The incision was carried to deep with a combination of sharp and blunt dissection with care to protect and retract all the neurovascular bundles. Then a guidepin was introduced from dorsal to plantar at the midportion of the first cuneiform parallel to the first TMT. Adequate and satisfactory hardware placement was confirmed on x-ray and then a sagittal saw was used to osteotomize the dorsal first cuneiform with care to preserve the plantar cortex and the second metatarsal base. A 7 x 20 x 10 mm allograft wedge was used to achieve adequate plantar flexion at the first ray and medial column and the forefoot was noted balanced to the left foot. A metallic staple, 20 x20mmm, was used to affix the allograft wedge without any palpable osseous or graft prominence dorsally through skin. Adequate hardware placement position was noted without any violation to the neighboring joints based on x-ray. All the surgical sites were irrigated with copious saline solution and closed in layers with 3-0 Vicryl, 4 Monocryl, 3-0 nylon 10 cc of 0.25% percent Marcaine plain was used for postoperative anesthesia augmentation. The surgical sites were then dressed with Xeroform , 4 x 4 gauze. A well-padded Acosta compression splint was applied to the left lower extremity. Tourniquet was deflated and adequate digital perfusion was noted. Patient tolerated anesthesia and procedure well with neurovascular status intact to the surgical lower extremity. Patient will be transferred to PACU for continuous recovery. Pending left lower extremity ankle and foot x-ray. In PACU, patient to receive another 2 g of Ancef 1 dose given the duration of surgery to prevent infection. JIGAR GAGNON DPM Oct 21, 2021 16:05
== END 2021-10-21 14:30 | disposition home or self-care (01) ==
LOC: SURG 06:03
PROVIDERS: ATTEND Podiatrist
DX: M21.42 Flat foot [pes planus] (acquired), left foot (principal); I10 Essential (primary) hypertension; E66.9 Obesity, unspecified; K21.9 Gastro-esophageal reflux disease without esophagitis; M19.90 Unspecified osteoarthritis, unspecified site; F41.9 Anxiety disorder, unspecified; F32.9 Major depressive disorder, single episode, unspecified; Z79.899 Other long term (current) drug therapy; Z98.890 Other specified postprocedural states; Z88.2 Allergy status to sulfonamides; Z88.8 Allergy status to other drugs, medicaments and biological substances
CPT/HCPCS: 73610; 73630; 73650; 76000; A4209; A4930; A6223; A6253; A6402; A6449; A6450; C1713; C1769; J0690; J0780; J1100; J1170; J2250; J2405; J2704; J2795; J3010; J3490